=== PATIENT | female | born 1955 | race Caucasian/White ===

== ENCOUNTER 2020-06-04 06:40 | Outpatient (REF) | payer OTHER, SELFPAY ==
[2020-06-04 08:52] LABS: Thyroid Stimulating Hormone 0.62 uIU/mL (0.32-4.0)
== END 2020-06-04 06:41 | disposition home or self-care (01) ==
LOC: HO.LAB 06:40
PROVIDERS: Visit Provider Internal Medicine
DX: E03.9 Hypothyroidism, unspecified (principal)
CPT/HCPCS: 84443

== ENCOUNTER 2020-09-14 15:19 | Outpatient (REF) | payer OTHER, SELFPAY ==
--- NOTE | ~2020-09-14 | MM_ITS ---
EXAMINATION: MM SCREENING DIGITAL BREAST TOMOSYNTHESIS, BILATERAL CLINICAL INFORMATION: Screening. Asymptomatic. The lifetime risk of breast cancer based on the Tyrer-Cuzick Model is 7%. COMPARISON: Mammography: 09/09/2019, 07/25/2018, 06/12/2017 TECHNIQUE: Digital breast tomosynthesis is performed in both the craniocaudal and mediolateral oblique views along with computer-aided detection (CAD). Synthesized 2D images are generated from the tomosynthesis. Additional exaggerated left CC and right MLO views are provided. FINDINGS: The breasts are almost entirely fatty (ACR BI-RADS breast composition Category a). There are no significant masses, abnormal calcifications, or other abnormalities. Background stromal and fibroglandular densities are stable. Skin contours are smooth. MM/MM tomosynthesis screening BI IMPRESSION: No mammographic evidence of malignancy. ASSESSMENT: BI-RADS 1: Negative RECOMMENDATION: Routine annual mammography screening. This patient's information was entered into a reminder system with a target due date for their next mammogram.
== END 2020-09-14 15:20 | disposition home or self-care (01) ==
LOC: HO.MAMMO 15:19
PROVIDERS: Visit Provider Internal Medicine
DX: Z12.31 Encounter for screening mammogram for malignant neoplasm of breast (principal)
CPT/HCPCS: 77063; 77067

== ENCOUNTER 2020-11-12 13:00 | Outpatient (RCR) | payer OTHER, SELFPAY | END 2020-11-19 09:00 | disposition home or self-care (01) | LOC: HO.PT 13:00 | PROVIDERS: PCP Internal Medicine; Visit Provider Internal Medicine | DX: R42 Dizziness and giddiness (principal) | CPT/HCPCS: 95992; 97112; 97162 ==

== ENCOUNTER 2020-11-15 06:04 | Outpatient (REF) | payer OTHER, SELFPAY ==
[2020-11-15 07:04] LABS: Alanine Aminotransferase 26 U/L (0-31); Albumin Level 4.5 g/dL (3.5-5.0); Alkaline Phosphatase 80 U/L (39-117); Anion Gap 15 (12-20); Aspartate Amino Transferase 19 U/L (5-31); Bilirubin Total 0.6 mg/dL (0.0-1.0); Blood Urea Nitrogen 21 mg/dL (9-16); Calcium 9.6 mg/dL (8.4-10.2); Carbon Dioxide 28 mmol/L (22-29); Chloride 105 mmol/L (96-108); Cholesterol 237 mg/dL; Estimated Glomerular Filt Rate > 60; Glucose Random 116 mg/dL (60-115); HDL Cholesterol 86 mg/dL; LDL Cholesterol Calculated 137 mg/dl; Potassium 4.7 mmol/L (3.3-5.1); Sodium 143 mmol/L (135-145); Total Protein 7.1 g/dL (6.5-8.0); Triglycerides 74 mg/dL
[2020-11-15 07:06] LABS: Estimated Average Glucose 105 mg/dL; Hemoglobin A1c % 5.3 %
[2020-11-15 07:26] LABS: Free T4 (Free Thyroxine) 1.12 ng/dL (0.71-1.85); Thyroid Stimulating Hormone 0.81 uIU/mL (0.32-4.0); Vitamin D 25-OH Total 31.3 ng/mL (>30)
[2020-11-15 08:46] LABS: Glucose Urine UA NEG (NEG); Leukocyte Esterase Urine NEG (NEG); Nitrite Urine NEG (NEG); PH 5.5 (5.0-8.0); Specific Gravity - Urine >= 1.030 (1.005-1.025); Urine Blood 1+ (NEG); Urine Ketones NEG (NEG); Urine Protein NEG (NEG-TRACE)
[2020-11-15 08:47] LABS: Appearance Urine CLEAR; Color Urine YELLOW
[2020-11-15 08:59] LABS: Bacteria Urine TRACE /LPF; RBC Urine 0-2 /HPF (0); Squamous Epithelial Cell Urine TRACE /LPF; WBC Urine 0-2 /HPF (0-4)
== END 2020-11-15 06:05 | disposition home or self-care (01) ==
LOC: HO.LAB 06:04
PROVIDERS: PCP Internal Medicine; Visit Provider Internal Medicine
DX: I10 Essential (primary) hypertension (principal); K21.9 Gastro-esophageal reflux disease without esophagitis; E78.00 Pure hypercholesterolemia, unspecified; E03.9 Hypothyroidism, unspecified; R73.01 Impaired fasting glucose; E55.9 Vitamin D deficiency, unspecified
CPT/HCPCS: 36415; 80053; 80061; 81001; 82306; 83036; 84439; 84443

== ENCOUNTER 2021-03-08 15:56 | Outpatient (REF) | payer OTHER, SELFPAY ==
--- NOTE | 2021-03-09 09:00 | MHC.AU.P13 ---
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 Changed slim tube (last note says #1 however there was #2 on hearing aid) so replaced #2 slim tube and large power dome. Patient quoted $330.00 to send to [employer] for repair. 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 Signature: Provider:
== END 2021-03-08 15:57 | disposition home or self-care (01) ==
LOC: HO.HAP 15:56
PROVIDERS: Visit Provider Internal Medicine
DX: Z13.89 Encounter for screening for other disorder (principal)

== ENCOUNTER 2021-10-04 15:28 | Outpatient (REF) | payer OTHER, SELFPAY ==
--- NOTE | ~2021-10-04 | MM_ITS ---
EXAMINATION: MM SCREENING DIGITAL BREAST TOMOSYNTHESIS, BILATERAL CLINICAL INFORMATION: Screening. Asymptomatic. The lifetime risk of breast cancer based on the Tyrer-Cuzick Model is 6%. COMPARISON: Mammography: 09/14/2020, 09/09/2019, 07/25/2018 TECHNIQUE: Digital breast tomosynthesis is performed in both the craniocaudal and mediolateral oblique views along with computer-aided detection (CAD). Synthesized 2D images are generated from the tomosynthesis. Additional bilateral CC and additional bilateral MLO views are obtained. FINDINGS: The breasts are almost entirely fatty (ACR BI-RADS breast composition Category a). There are no significant masses, abnormal calcifications, or other abnormalities. Background stromal and fibroglandular densities are similar to prior studies. There is no developing density or architectural abnormality. No significant changes. MM/MM tomosynthesis screening BI IMPRESSION: No mammographic evidence of malignancy. ASSESSMENT: BI-RADS 1: Negative RECOMMENDATION: Routine annual mammography screening. This patient's information was entered into a reminder system with a target due date for their next mammogram.
== END 2021-10-04 15:29 | disposition home or self-care (01) ==
LOC: HO.MAMMO 15:28
PROVIDERS: PCP Internal Medicine; Visit Provider Internal Medicine
DX: Z12.31 Encounter for screening mammogram for malignant neoplasm of breast (principal)
CPT/HCPCS: 77063; 77067

== ENCOUNTER 2021-10-27 15:05 | Outpatient (REF) | payer OTHER, SELFPAY ==
--- NOTE | ~2021-10-27 | MM_ITS ---
EXAMINATION: BONE DENSITOMETRY CLINICAL INDICATION: Postmenopausal. COMPARISON: Previous BD dated 06/12/2017 and baseline BD dated 05/24/2010. TECHNIQUE: Using a [employer] DXA System (software version: 13.1) manufactured by [employer], dual-energy x-ray absorptiometry was performed of the lumbar spine and left hip. The images are of good technical quality. Summary results are attached. FINDINGS: AP SPINE L1-L4: Current: BMD 1.079 g/cm2, Z-score -0.5, T-score -0.8, normal, 3.6% decrease from previous, 5.2% decrease from baseline (<5% change is not significant). Prior: BMD 1.119 g/cm2. Baseline: BMD 1.138 g/cm2. LEFT FEMUR, NECK: Current: BMD 0.864 g/cm2, Z-score -0.6, T-score -1.3, osteopenia. Prior: BMD 1.038 g/cm2. Baseline: BMD 1.144 g/cm2. LEFT FEMUR, TOTAL: Current: BMD 0.942 g/cm2, Z-score -0.2, T-score -0.5, normal, 14.4% decrease from previous, 22.8% decrease from baseline (<5% change is not significant). Prior: BMD 1.101 g/cm2. Baseline: BMD 1.220 g/cm2. IDENTIFIED RISK FACTORS: Menopause, hyperthyroid, secondary osteoporosis. HISTORY OF FRACTURE: None listed. MEDICATIONS: Calcium, vitamin D. MM/XR DEXA axial skeleton IMPRESSION: 1. DIAGNOSIS: Osteopenia based on the lowest T-score value of -1.3 in the femoral neck applying World Health Organization criteria. 2. 10-YEAR FRACTURE RISK PREDICTION, FRAX: Major osteoporotic fracture (clinical spine, forearm, hip or shoulder) 7.5%. Hip fracture 0.6%. 3. Treatment Recommendations: NOF guidelines recommend consideration for treatment in postmenopausal women and men age 50 and older presenting with the following: -A hip or vertebral (clinical or morphometric) fracture. -T-score less than or equal to -2.5 at the femoral neck or spine after appropriate evaluation to exclude secondary causes. -Low bone mass at the hip or spine and a 10-year fracture probability by FRAX of greater than or equal to 3% for hip fracture or greater than or equal to 20% for major osteoporotic fracture based on the [place] adapted WHO algorithm. 4. Other Recommendations: All treatment decisions require clinical judgment and consideration of individual patient factors, including patient preferences, comorbidities, previous drug use, risk factors not captured in the FRAX model (e.g. frailty, falls, vitamin D deficiency, increased bone turnover, interval significant decline in bone density) and possible under or overestimation of fracture risk by FRAX. Additional medical evaluation for secondary cause of low bone mineral density may be appropriate. FUTURE SCAN RECOMMENDATION: People with diagnosed cases of osteoporosis or at high risk for fracture should have regular bone mineral density tests. For patients eligible for Medicare, routine testing is allowed once every 2 years. The testing frequency can be increased to one year for patients who have rapidly progressing disease, those who are receiving or discontinuing medical therapy to restore bone mass, or have additional risk factors.
== END 2021-10-27 15:06 | disposition home or self-care (01) ==
LOC: HO.MAMMO 15:05
PROVIDERS: Visit Provider Internal Medicine
DX: Z13.820 Encounter for screening for osteoporosis (principal); Z78.0 Asymptomatic menopausal state; M85.80 Other specified disorders of bone density and structure, unspecified site
CPT/HCPCS: 77080

== ENCOUNTER 2022-01-12 06:11 | Outpatient (REF) | payer OTHER, SELFPAY ==
[2022-01-12 06:17] LABS: MANUAL DIFF FLAG NO
[2022-01-12 07:13] LABS: Basophils Percent Auto 0.4 % (0-2); Eosinophils Absolute Auto 0.1 X10*3/uL (0.0-0.4); Eosinophils Percent Auto 1.6 % (0-4); Hematocrit 47.2 % (37.0-47.0); Hemoglobin 15.3 g/dl (12.0-16.0); Imm Gran Abs Auto 0.02 X10*3/uL (0.00-0.03); Imm Gran Pct Auto 0.3 % (0.0-0.4); Lymphocytes Absolute Auto 1.9 X10*3/uL (1.2-4.9); Lymphocytes Percent Auto 28.4 % (20-40); Mean Corpuscular HGB Conc 32.4 g/dl (31.0-35.0); Mean Corpuscular Hemoglobin 30.5 pg (27.0-33.0); Mean Corpuscular Volume 94.2 fL (80.0-98.0); Mean Platelet Volume 10.3 fL (9.4-12.3); Monocytes Absolute Auto 0.6 X10*3/uL (0.1-1.2); Monocytes Percent Auto 8.2 % (2-11); Neutrophils Absolute Auto 4.1 x10*3/uL (2.0-8.3); Neutrophils Percent Auto 61.1 % (45-73); Platelet Count 372 X10*3/uL (160-400); Red Blood Count 5.01 X10*6/uL (4.20-5.50); Red Cell Distribution Width 13.1 % (11.0-16.0); White Blood Count 6.7 X10*3/uL (4.8-10.8)
[2022-01-12 07:47] LABS: Alanine Aminotransferase 36 U/L (0-31); Albumin Level 4.5 g/dL (3.5-5.0); Alkaline Phosphatase 81 U/L (39-117); Anion Gap 14 (12-20); Aspartate Amino Transferase 27 U/L (5-31); Bilirubin Total 0.5 mg/dL (0.0-1.0); Blood Urea Nitrogen 16 mg/dL (9-16); Calcium 9.5 mg/dL (8.4-10.2); Carbon Dioxide 28 mmol/L (22-29); Chloride 104 mmol/L (96-108); Cholesterol 238 mg/dL; Estimated Glomerular Filt Rate > 60; Glucose Random 117 mg/dL (60-115); HDL Cholesterol 86 mg/dL; LDL Cholesterol Calculated 136 mg/dl; Sodium 141 mmol/L (135-145); Total Protein 7.2 g/dL (6.5-8.0); Triglycerides 83 mg/dL
[2022-01-12 08:03] LABS: Free T4 (Free Thyroxine) 1.29 ng/dL (0.71-1.85); Thyroid Stimulating Hormone 0.36 uIU/mL (0.32-4.0)
[2022-01-12 08:06] LABS: Appearance Urine HAZY; Color Urine YELLOW; Glucose Urine UA NEG (NEG); Leukocyte Esterase Urine 3+ (NEG); Nitrite Urine NEG (NEG); Specific Gravity - Urine 1.025 (1.005-1.025); Urine Blood 1+ (NEG); Urine Ketones NEG (NEG); Urine Protein NEG (NEG-TRACE)
[2022-01-12 08:31] LABS: Bacteria Urine 2+ /LPF; Squamous Epithelial Cell Urine 3+ /LPF
== END 2022-01-12 06:12 | disposition home or self-care (01) ==
LOC: HO.LAB 06:11
PROVIDERS: PCP Internal Medicine; Visit Provider Internal Medicine
DX: R73.01 Impaired fasting glucose (principal); I10 Essential (primary) hypertension; E78.00 Pure hypercholesterolemia, unspecified; E03.9 Hypothyroidism, unspecified
CPT/HCPCS: 36415; 80053; 80061; 81001; 81003; 84439; 84443; 85025

== ENCOUNTER 2022-02-13 13:45 | Outpatient (REF) | payer OTHER, SELFPAY ==
[2022-02-13 13:51] VITALS: BMI 32.9
[2022-02-13 13:52] VITALS: BP 165/79; PULSE 68; RESP 16; TEMP 36.1; O2SAT 96
[2022-02-13 15:45] VITALS: BP 142/77; PULSE 73; RESP 16; O2SAT 95
== END 2022-02-13 13:46 | disposition home or self-care (01) ==
LOC: HO.MS 13:45
PROVIDERS: PCP Internal Medicine; Visit Provider Ophthalmology
PROC: (CPT 67800; principal; 2022-02-13 13:40)
DX: H00.14 Chalazion left upper eyelid (principal); H35.363 Drusen (degenerative) of macula, bilateral; Z82.1 Family history of blindness and visual loss; I10 Essential (primary) hypertension; E07.9 Disorder of thyroid, unspecified; Z79.899 Other long term (current) drug therapy; Z88.2 Allergy status to sulfonamides; Z88.8 Allergy status to other drugs, medicaments and biological substances; Z87.891 Personal history of nicotine dependence
CPT/HCPCS: 67800

== ENCOUNTER → 2022-02-23 15:24 | Outpatient (BNVA) | payer OTHER, SELFPAY | PROVIDERS: PCP Internal Medicine; Referring Provider Internal Medicine; Visit Provider Internal Medicine Cardiovascular Disease | DX: I49.3 Ventricular premature depolarization (principal); I10 Essential (primary) hypertension | CPT/HCPCS: 93005 ==

== ENCOUNTER 2022-04-21 06:13 | Outpatient (REF) | payer OTHER, SELFPAY ==
[2022-04-21 07:56] LABS: Estimated Average Glucose 114 mg/dL; Hemoglobin A1c % 5.6 %
[2022-04-21 08:14] LABS: Anion Gap 16 (12-20); Blood Urea Nitrogen 18 mg/dL (9-16); Calcium 9.4 mg/dL (8.4-10.2); Carbon Dioxide 28 mmol/L (22-29); Chloride 102 mmol/L (96-108); Estimated Glomerular Filt Rate > 60; Glucose Random 119 mg/dL (60-115); Potassium 4.6 mmol/L (3.3-5.1); Sodium 141 mmol/L (135-145)
[2022-04-21 08:20] LABS: TSH reflex Free T4 6.26 uIU/mL (0.32-4.0)
[2022-04-21 09:17] LABS: Free T4 (Free Thyroxine) 1.07 ng/dL (0.71-1.85)
== END 2022-04-21 06:14 | disposition home or self-care (01) ==
LOC: HO.LAB 06:13
PROVIDERS: PCP Internal Medicine; Visit Provider Internal Medicine
DX: I10 Essential (primary) hypertension (principal); E07.89 Other specified disorders of thyroid; R73.01 Impaired fasting glucose
CPT/HCPCS: 36415; 80048; 83036; 84439; 84443

== ENCOUNTER 2022-06-28 15:39 | Outpatient (REF) | payer OTHER, SELFPAY ==
[2022-06-28 15:59] LABS: MANUAL DIFF FLAG NO
[2022-06-28 16:20] LABS: Basophils Percent Auto 0.5 % (0-2); Eosinophils Absolute Auto 0.1 X10*3/uL (0.0-0.4); Eosinophils Percent Auto 1.4 % (0-4); Hematocrit 45.2 % (37.0-47.0); Hemoglobin 14.7 g/dl (12.0-16.0); Imm Gran Abs Auto 0.03 X10*3/uL (0.00-0.03); Imm Gran Pct Auto 0.4 % (0.0-0.4); Lymphocytes Absolute Auto 2.4 X10*3/uL (1.2-4.9); Lymphocytes Percent Auto 30.3 % (20-40); Mean Corpuscular HGB Conc 32.5 g/dl (31.0-35.0); Mean Corpuscular Hemoglobin 30.4 pg (27.0-33.0); Mean Corpuscular Volume 93.4 fL (80.0-98.0); Mean Platelet Volume 10.1 fL (9.4-12.3); Monocytes Absolute Auto 0.8 X10*3/uL (0.1-1.2); Monocytes Percent Auto 10.4 % (2-11); Neutrophils Absolute Auto 4.5 x10*3/uL (2.0-8.3); Platelet Count 333 X10*3/uL (160-400); Red Blood Count 4.84 X10*6/uL (4.20-5.50); Red Cell Distribution Width 12.8 % (11.0-16.0); White Blood Count 7.8 X10*3/uL (4.8-10.8)
[2022-06-28 17:07] LABS: Alanine Aminotransferase 30 U/L (0-31); Albumin Level 4.4 g/dL (3.5-5.0); Alkaline Phosphatase 76 U/L (39-117); Anion Gap 11 (12-20); Aspartate Amino Transferase 23 U/L (5-31); Bilirubin Total 0.5 mg/dL (0.0-1.0); Blood Urea Nitrogen 18 mg/dL (9-16); Calcium 9.4 mg/dL (8.4-10.2); Carbon Dioxide 30 mmol/L (22-29); Chloride 104 mmol/L (96-108); Estimated Glomerular Filt Rate > 60; Ferritin 191 ng/mL (10-250); Free T4 (Free Thyroxine) 1.11 ng/dL (0.71-1.85); Glucose Random 103 mg/dL (60-115); Iron 72 mcg/dL (30-160); Percent Iron Saturation 26 % (15-50); Potassium 4.3 mmol/L (3.3-5.1); Sodium 141 mmol/L (135-145); Thyroid Stimulating Hormone 1.02 uIU/mL (0.32-4.0); Total Iron Binding Capacity 277 mcg/dL (228-428); Total Protein 6.9 g/dL (6.5-8.0); Unsaturated Iron Binding 205 ug/dL
== END 2022-06-28 15:40 | disposition home or self-care (01) ==
LOC: HO.LAB 15:39
PROVIDERS: PCP Internal Medicine; Visit Provider Internal Medicine
DX: E03.9 Hypothyroidism, unspecified (principal); I10 Essential (primary) hypertension; R94.5 Abnormal results of liver function studies
CPT/HCPCS: 36415; 80053; 82728; 83540; 84439; 84443; 85025

== ENCOUNTER 2022-07-18 07:47 | Outpatient (REF) | payer OTHER, SELFPAY ==
--- NOTE | ~2022-07-18 | CT_ITS ---
EXAMINATION: CT ABDOMEN AND PELVIS WITH CONTRAST CLINICAL INFORMATION: Epigastric pain. COMPARISON: CT abdomen and pelvis with contrast 01/22/2013. TECHNIQUE: Multidetector volumetric images were obtained from the superior aspect of the liver through the pubic symphysis following administration 85 mL of Omnipaque 350 intravenous contrast. Sagittal and coronal reformatted images were obtained on the technologist's workstation. Oral contrast: No. This CT examination was performed using dose optimization techniques as appropriate, variously including the following: *Automated exposure control *Adjustment of mA and/or kV according to patient size (this includes techniques or standardized protocols for targeted exams where dose is matched to indication/reason for exam; i.e. extremities or head) *Use of iterative reconstruction technique DLP: 747 mGy-cm FINDINGS: LUNG BASES: The visualized lung bases are unremarkable. LIVER, GALLBLADDER, AND BILIARY TREE: The liver is normal in size, shape, and attenuation. There is an 8 mm round hypodensity left hepatic lobe, probable cyst. Best visualized on axial image 17/3. It is unchanged since 2013 exam. No additional lesions seen. There is no intrahepatic ductal dilatation. The gallbladder is unremarkable with no evidence of radiopaque gallstones, gallbladder wall thickening, or obvious pericholecystic inflammatory changes. PANCREAS: Pancreas is homogeneous in density and normal size with a known 7 mm hypodensity in the tail of the pancreas likely small lipoma, stable. SPLEEN: Unremarkable. ADRENAL GLANDS: Unremarkable. KIDNEYS AND URETERS: The kidneys are normal in size, shape, and attenuation. No hydronephrosis, hydroureter, or calculi seen. No perinephric stranding. There is a 7 mm hypodensity in the right kidney upper pole, likely cyst. Previously it measured 9 mm in 2013. BLADDER: Unremarkable. GASTROINTESTINAL TRACT: There is moderate scattered stool, diverticuli and gas seen in the colon without any distention. Oral contrast opacified small bowel loops are normal caliber. ABDOMINAL WALL: There is a small umbilical hernia containing intraperitoneal fat. LYMPH NODES: Normal. VASCULAR: Unremarkable. PELVIC VISCERA: The right inguinal canal is prominent with peritoneal fat. No free fluid or mass seen. The uterus is anteverted. OSSEOUS STRUCTURES: There are degenerative disc changes L5/S1 disc level with vacuum disc phenomena. No aggressive lytic or sclerotic process seen. CT/CT abdomen pelvis w IV con IMPRESSION: No acute intra-abdominal process seen. Stable left hepatic lobe cyst. Colonic diverticulosis without diverticulitis. Fleischner guidelines were followed.
[2022-07-18] MEDS: iohexoL 350 MG/ML 100 ML INFUS..BTL IV (10:37)
[2022-07-18] MEDS: Barium Sulfate Oral (Vanilla) 450 ML ORAL.SUSP 900 ML PO (10:38)
== END 2022-07-18 07:48 | disposition home or self-care (01) ==
LOC: HO.CT 07:47
PROVIDERS: PCP Internal Medicine; Visit Provider Internal Medicine
DX: R10.13 Epigastric pain (principal)
CPT/HCPCS: 74177; Q9967

== ENCOUNTER 2022-10-27 09:24 | Day surgery (SDC) | payer OTHER, SELFPAY ==
--- NOTE | 2022-10-27 08:52 | HO.ANESPROP2 ---
[facility] Active Problems Active Problems: All Active Problems (Updated 10/26/22 @ 12:33 by Britni Zamorano RN) HTN (hypertension) (Acute) PVCs (premature ventricular contractions) (Acute) Past Medical History Medical History Diverticulitis GERD (gastroesophageal reflux disease) HTN (hypertension) PVCs (premature ventricular contractions) Surgical History Surgical History H/O esophagogastroduodenoscopy H/O mastoidectomy History of bladder surgery History of ear surgery Hx of tonsillectomy History of Problems with Anesthesia: No Social History Social History Patient Tobacco Use Status: Never used Tobacco Are you DNR?: No Advance Directives: No Advance Directives Information Provided: Yes Nutrition Risks: No Nutritional Risk Meds Allergies Allergy/AdvReac Type Severity Reaction Status Date / Time levofloxacin [From Levaquin] Allergy Severe RED Verified 10/27/22 09:34 SKIN/BURNING SENSATION, rash metoprolol [METOPROLOL] Allergy Severe severe Verified 10/27/22 09:34 muscle weakness pineapple [PINEAPPLE] Allergy Severe TONGUE Verified 10/27/22 09:34 SWELLING propranolol [PROPRANOLOL] Allergy Intermediate DYSPNEA/DEPRESSION, Verified 10/27/22 09:34 depression Sulfa (Sulfonamide Allergy Intermediate RASH Verified 10/27/22 09:34 Antibiotics) lisinopril Allergy Unknown cough Verified 10/27/22 09:34 venom-wasp Allergy Unknown severe Verified 10/27/22 09:34 local reaction Flexeril Allergy Unknown nausea Uncoded 10/27/22 09:34 Home Medications Medication Instructions Recorded Confirmed Last Taken Type cholecalciferol (vitamin D3) 25 25 mcg PO DAILY 02/23/22 10/27/22 Unknown History mcg (1,000 unit) capsule diltiazem HCl 180 mg 180 mg PO DAILY 02/23/22 10/27/22 Unknown History capsule,extended release 24 hr levothyroxine 100 mcg tablet 100 mcg PO DAILY 02/23/22 10/27/22 Unknown History losartan 100 mg tablet 100 mg PO DAILY 02/23/22 10/27/22 Unknown History multivitamin (Multiple Vitamins 1 tab PO DAILY 02/23/22 10/27/22 Unknown History tablet) omeprazole magnesium 20 mg 20 mg PO PRN Heartburn 10/27/22 Unknown History tablet,delayed release (Prilosec OTC) Exam Exam Date and Time: October 27, 2022 [id number] Mallampati Class: III (small mouth) TM Dist: >3cm Neck ROM: Full Loose/Missing/Broken Teeth: No Heart: RRR Lungs: CTA Assessment and Plan Final Anesthetic Review History of Problems with Anesthesia: No NPO: Yes ASA Class: II Final Preanesthetic Review: Meds/Allgs Chart Reviewed, Consent Obtained/Reviewed and Anes Risks/Benef Reviewed Patient Risk: Low Procedure Risk: Intermediate Anesthetic Plan Anesthetic Plan: MAC: Disposition: Standard PACU
[2022-10-27 09:31] VITALS: BMI 34.0
[2022-10-27] MEDS: Lactated Ringers 1,000 ML 50 ML IVCONT (09:38)
[2022-10-27 09:59] VITALS: BP 158/86; PULSE 93; RESP 18; TEMP 36.7; O2SAT 95
--- NOTE | 2022-10-27 11:08 | MHC.SHP ---
Pre-Procedural Eval Section A Date of Service: 10/27/22 The patient is an INPATIENT: No Changes since office visit: No Cold of Flu in the past 2 weeks, No New Medical Problems, No Changes in Medication and No Patient answered all questions The History & Physical has been completed within 30 days and I have reviewed it.: Yes Section B Chief Complaint: Other dysphagia,GERD,Screening Allergies: Allergies Allergy/AdvReac Type Severity Reaction Status Date / Time levofloxacin [From Levaquin] Allergy Severe RED Verified 10/27/22 09:34 SKIN/BURNING SENSATION, rash metoprolol [METOPROLOL] Allergy Severe severe Verified 10/27/22 09:34 muscle weakness pineapple [PINEAPPLE] Allergy Severe TONGUE Verified 10/27/22 09:34 SWELLING propranolol [PROPRANOLOL] Allergy Intermediate DYSPNEA/DEPRESSION, Verified 10/27/22 09:34 depression Sulfa (Sulfonamide Allergy Intermediate RASH Verified 10/27/22 09:34 Antibiotics) lisinopril Allergy Unknown cough Verified 10/27/22 09:34 venom-wasp Allergy Unknown severe Verified 10/27/22 09:34 local reaction Flexeril Allergy Unknown nausea Uncoded 10/27/22 09:34 Plan I have reviewed the history and physical and performed a pertinent physical examination on my patient. No changes have occurred unless specified. Time Spent With Patient Time: Total time managing care of this patient today ____ minutes.
[2022-10-27 11:55] VITALS: BP 143/63; PULSE 89; RESP 20; TEMP 36.4; O2SAT 95
--- NOTE | 2022-10-27 11:57 | P.BOP_ITS ---
Brief Operative Note Date of Service: 10/27/22 Pre-op diagnosis: dysphagia gerd screening Post-op diagnosis: same Procedure: egd colonoscopy Surgeon: Steve Trinh Anesthesia: MAC Was an Infantry Senior Sergeant used for this Procedure?: No Estimated blood loss (mL): 2 Pathology: other Condition: stable Disposition: PACU
[2022-10-27 12:10] VITALS: BP 130/67; PULSE 88; RESP 18; O2SAT 95
[2022-10-27 12:17] VITALS: BP 151/78; PULSE 80; RESP 17; TEMP 36.4; O2SAT 96
--- NOTE | 2022-10-27 13:02 | OP_ITS ---
DATE OF SERVICE: 10/27/2022 SURGEON: Steve Trinh MD INDICATIONS: 1. Gastroesophageal reflux disease. 2. Dysphagia. 3. Colon cancer screening. PREOPERATIVE DIAGNOSIS: POSTOPERATIVE DIAGNOSIS: PROCEDURE PERFORMED: 1. Upper endoscopy with biopsy. 2. Colonoscopy to the terminal ilium. ESTIMATED BLOOD LOSS: COMPLICATIONS: ANESTHESIA: Monitored anesthesia care. ASSISTANTS: SPECIMENS: DESCRIPTION OF PROCEDURE: A history and physical was performed. The risks and benefits of the procedure were explained to the patient. Informed consent was obtained. The patient was placed in the left lateral decubitus position. The Olympus video gastroscope was introduced into the esophagus, stomach, and duodenum. Examination was performed. The scope was removed. She was repositioned for colonoscopy. Digital rectal exam was performed and was found to be normal. The Olympus pediatric video colonoscope was introduced in the rectum and advanced to the cecum without difficulty. The cecum was identified by transillumination, palpation, and identification of the ileocecal valve. Examination was performed. The scope was removed. She tolerated both procedures well and was returned to the recovery area in stable condition. FINDINGS: Upper endoscopy: 1. Esophagus: The esophagus was normal. There was a normal EG junction. Biopsies were obtained at 30 cm at the EG junction. There was no esophagitis. 2. Stomach: The stomach was normal. Antral biopsies were obtained. 3. Duodenum: The bulb and 2nd portion were normal. Colonoscopy: The terminal was examined and appeared normal. The visualized colonic mucosa was normal. There was some liquid stool in the cecum, which was washed and suctioned. No polyps were identified. Retroflexed examination was normal. There was moderate sigmoid diverticulosis without evidence of diverticulitis and no scattered diverticula throughout the remainder of the colon. IMPRESSION: 1. Gastroesophageal reflux disease. 2. Normal colonoscopy, diverticular. RECOMMENDATION: 1. Follow up the biopsy results. 2. Repeat colonoscopy is recommended in 10 years for average risk individuals. MD VIC Leong/ROBERT / [id number]
== END 2022-10-27 12:30 | disposition home or self-care (01) ==
PROVIDERS: PCP Internal Medicine; Visit Provider Internal Medicine Gastroenterology
PROC: (CPT 45378; principal; 2022-10-27 10:40)
DX: Z12.11 Encounter for screening for malignant neoplasm of colon (principal); Z86.010 Personal history of colon polyps; K57.30 Diverticulosis of large intestine without perforation or abscess without bleeding; R13.19 Other dysphagia; K21.9 Gastro-esophageal reflux disease without esophagitis; I10 Essential (primary) hypertension; R00.2 Palpitations; Z79.899 Other long term (current) drug therapy; Z88.1 Allergy status to other antibiotic agents; Z88.2 Allergy status to sulfonamides; Z88.8 Allergy status to other drugs, medicaments and biological substances; Z87.891 Personal history of nicotine dependence
CPT/HCPCS: 45378; 43239; 88305; 88342; J2250

== ENCOUNTER 2022-11-14 15:24 | Outpatient (REF) | payer OTHER, SELFPAY ==
--- NOTE | ~2022-11-14 | MM_ITS ---
EXAMINATION: MM SCREENING DIGITAL BREAST TOMOSYNTHESIS, BILATERAL CLINICAL INFORMATION: Screening. Asymptomatic. The lifetime risk of breast cancer based on the Tyrer-Cuzick Model is 7%. COMPARISON: Mammography: October 04, 2021 and studies dating back to March 03, 2013 TECHNIQUE: Digital breast tomosynthesis is performed in both the craniocaudal and mediolateral oblique views along with computer-aided detection (CAD). Synthesized 2D images are generated from the tomosynthesis. FINDINGS: The breasts are almost entirely fatty (ACR BI-RADS breast composition Category a). There are no significant masses, abnormal calcifications, or other abnormalities. Density about the deep lateral aspect of the left breast on craniocaudal view is seen to have been present on study of June 12, 2017. MM/MM tomosynthesis screening BI IMPRESSION: No significant changes from prior exam. ASSESSMENT: BI-RADS 1: Negative RECOMMENDATION: Routine annual mammography screening. This patient's information was entered into a reminder system with a target due date for their next mammogram.
== END 2022-11-14 15:25 | disposition home or self-care (01) ==
LOC: HO.MAMMO 15:24
PROVIDERS: PCP Internal Medicine; Visit Provider Internal Medicine
DX: Z12.31 Encounter for screening mammogram for malignant neoplasm of breast (principal)
CPT/HCPCS: 77063; 77067

== ENCOUNTER 2023-04-04 08:15 | Outpatient (REF) | payer OTHER, SELFPAY ==
[2023-04-04 08:32] LABS: MANUAL DIFF FLAG NO
[2023-04-04 09:26] LABS: Basophils Percent Auto 0.5 % (0-2); Eosinophils Absolute Auto 0.1 X10*3/uL (0.0-0.4); Eosinophils Percent Auto 1.4 % (0-4); Hematocrit 47.3 % (37.0-47.0); Hemoglobin 15.3 g/dl (12.0-16.0); Imm Gran Abs Auto 0.02 X10*3/uL (0.00-0.03); Imm Gran Pct Auto 0.3 % (0.0-0.4); Lymphocytes Percent Auto 30.7 % (20-40); Mean Corpuscular HGB Conc 32.3 g/dl (31.0-35.0); Mean Corpuscular Hemoglobin 30.6 pg (27.0-33.0); Mean Corpuscular Volume 94.6 fL (80.0-98.0); Mean Platelet Volume 10.6 fL (9.4-12.3); Monocytes Absolute Auto 0.6 X10*3/uL (0.1-1.2); Monocytes Percent Auto 8.5 % (2-11); Neutrophils Absolute Auto 3.8 x10*3/uL (2.0-8.3); Neutrophils Percent Auto 58.6 % (45-73); Platelet Count 343 X10*3/uL (160-400); Red Cell Distribution Width 12.9 % (11.0-16.0); White Blood Count 6.5 X10*3/uL (4.8-10.8)
[2023-04-04 09:32] LABS: Estimated Average Glucose 103 mg/dL; Hemoglobin A1c % 5.2 % (<6.0)
[2023-04-04 09:40] LABS: Appearance Urine Clear; Color Urine Dark Yellow; Glucose Urine UA Negative (Negative); Leukocyte Esterase Urine Moderate (2+) (Negative); Nitrite Urine Negative (Negative); UMIC TRIGGER UACC YES; Urine Blood Trace (Negative); Urine Ketones Negative (Negative); Urine Protein Negative (Neg-Trace)
[2023-04-04 09:45] LABS: Bacteria Urine Trace (None Seen); Hyaline Casts Urine 0-2 /LPF (0-2); Squamous Epithelial Cell Urine >20 /HPF (0-2); UACC Culture Trigger YES
[2023-04-04 10:06] LABS: Alanine Aminotransferase 26 U/L (0-31); Albumin Level 4.4 g/dL (3.5-5.0); Alkaline Phosphatase 82 U/L (39-117); Anion Gap 12 (12-20); Aspartate Amino Transferase 21 U/L (5-31); Bilirubin Total 0.9 mg/dL (0.0-1.0); Blood Urea Nitrogen 17 mg/dL (9-16); Calcium 9.8 mg/dL (8.4-10.2); Carbon Dioxide 30 mmol/L (22-29); Chloride 103 mmol/L (96-108); Cholesterol 236 mg/dL (<200); Estimated Glomerular Filt Rate > 60; Glucose Random 113 mg/dL (60-115); HDL Cholesterol 93 mg/dL (>40); LDL Cholesterol Calculated 127 mg/dL (<100); Potassium 3.8 mmol/L (3.3-5.1); Sodium 141 mmol/L (135-145); Total Protein 7.3 g/dL (6.5-8.0); Triglycerides 83 mg/dL (<150)
[2023-04-04 10:25] LABS: Thyroid Stimulating Hormone 0.39 uIU/mL (0.32-4.0); Vitamin D 25-OH Total 38.4 ng/mL (>30)
== END 2023-04-04 08:16 | disposition home or self-care (01) ==
LOC: HO.LAB 08:15
PROVIDERS: PCP Internal Medicine; Visit Provider Internal Medicine
DX: I10 Essential (primary) hypertension (principal); R35.1 Nocturia; E55.9 Vitamin D deficiency, unspecified; R73.01 Impaired fasting glucose
CPT/HCPCS: 36415; 80053; 80061; 81001; 82306; 83036; 84439; 84443; 85025; 87086

== ENCOUNTER 2023-07-03 12:10 | Inpatient (IN) | payer MEDICARE, SELFPAY ==
--- NOTE | ~2023-07-03 | CT_ITS ---
EXAMINATION: CT HEAD WITHOUT CONTRAST CLINICAL INFORMATION: Dizziness, imbalance COMPARISON: None available. TECHNIQUE: Contiguous axial imaging was performed from the skull base to vertex without intravenous administration of contrast. This CT examination was performed using dose optimization techniques as appropriate, variously including the following: *Automated exposure control *Adjustment of mA and/or kV according to patient size (this includes techniques or standardized protocols for targeted exams where dose is matched to indication/reason for exam; i.e. extremities or head) *Use of iterative reconstruction technique DLP: 671 mGy-cm FINDINGS: The ventricles and sulci are normal in size and configuration. No acute hemorrhage, mass effect or shift is evident. Alejandre-white differentiation is maintained. In the posterior fossa, the brainstem, cerebellum and fourth ventricle image normally. The orbits and calvarium are intact. The paranasal sinuses and mastoid air cells are well pneumatized and clear. CT/CT head/brain wo IV con IMPRESSION: 1. Unremarkable noncontrast brain CT. No acute hemorrhage, mass effect or shift.
--- NOTE | ~2023-07-03 | CT_ITS ---
EXAMINATION: CT ANGIOGRAM HEAD CT ANGIOGRAM NECK CLINICAL INFORMATION: Reason for Exam dizziness COMPARISON: Same-day CT head TECHNIQUE: Initial noncontrast sheet rock finisher imaging of the head and neck was performed. Comparison is made with noncontrast head CT from earlier today. Test bolus sequences followed by intravenous administration 70 mL of Omnipaque 350. Helical imaging was performed in the axial plane from the aortic arch to the skull vertex. Delayed postcontrast imaging of the head was also performed. The data was processed at the seating and mobility technologist's workstation for generation of MIP sequences. Angled MIPs and volume rendered reformatted images were also generated at an offline 3D workstation. Stenoses are assessed in accordance with Jacinto et al. Quantification of Carotid Stenosis on CT Angiography. AJR 2006. 27(1):13-19. [address] CT examination was performed using dose optimization techniques as appropriate, variously including the following: *Automated exposure control *Adjustment of mA and/or kV according to patient size (this includes techniques or standardized protocols for targeted exams where dose is matched to indication/reason for exam; i.e. extremities or head) *Use of iterative reconstruction technique DLP: 1439 mGy-cm FINDINGS: CT HEAD: No abnormal intracranial enhancement. Right-sided mastoidectomy. Please see separately dictated CT scan head for additional intracranial findings. CTA HEAD: Significant intracranial venous contamination. Anterior circulation: Right internal carotid artery: Atherosclerosis without flow-limiting stenosis. Prominent tortuosity. Right middle cerebral artery: No hemodynamically significant stenosis. Right anterior cerebral artery: No hemodynamically significant stenosis. Left internal carotid artery: Atherosclerosis without flow-limiting stenosis. Left middle cerebral artery: No hemodynamically significant stenosis. Left anterior cerebral artery: Mild fusiform prominence of the left aspect of the anterior commuting artery. Posterior circulation: Right vertebral artery: No hemodynamically significant stenosis. Left vertebral artery: No hemodynamically significant stenosis. Basilar artery: No hemodynamically significant stenosis. Right posterior cerebral artery: No hemodynamically significant stenosis. Left posterior cerebral artery: No hemodynamically significant stenosis. No high flow vascular malformation or significant aneurysmal dilatation is visualized. The major dural venous sinuses are grossly within normal limits given arterial technique. CTA NECK: Aortic arch: Normal anatomy. Right common carotid artery: Proximal motion degradation. The visualized aspects are without flow-limiting stenosis. Right proximal internal carotid artery: No hemodynamically significant stenosis. Right mid/distal internal carotid artery: No hemodynamically significant stenosis. Left common carotid artery: No hemodynamically significant stenosis. Left proximal internal carotid artery: No hemodynamically significant stenosis. Left mid/distal internal carotid artery: No hemodynamically significant stenosis. Right vertebral artery: No hemodynamically significant stenosis. Left vertebral artery: No hemodynamically significant stenosis. CT NECK: Linear scarring in the right upper lobe. 3 mm perifissural nodule in the right upper lobe. Atrophic thyroid gland. Nonspecific prominence of the right lingual tonsil filling the right vallecula. Small intraparotid lymph nodes. The oral cavity is obscured secondary to streak artifact. Degenerative changes of the cervical spine. CT/CT angio head neck IMPRESSION: CTA NECK: No hemodynamically significant stenosis. Mild asymmetric prominence of the right lingual tonsil protruding into the right vallecula. Clinical correlation is recommended. CTA HEAD: No proximal vessel occlusion or high-grade stenosis.
--- NOTE | ~2023-07-03 | MR_ITS ---
EXAMINATION: MR BRAIN WITHOUT CONTRAST CLINICAL INFORMATION: Concern for posterior circulation stroke. Dizziness and imbalance. COMPARISON: CT from 07/03/2023. TECHNIQUE: Multiplanar, multisequence imaging of the brain was performed without contrast. FINDINGS: No diffusion abnormalities are identified to suggest an acute or subacute infarct. The ventricles are normal in size. No mass effect or midline shift is seen. No brain parenchymal signal abnormality is noted. No extra-axial fluid collections are seen. The brainstem and cerebellum are normal. The gradient refocused acquisition is normal. The craniovertebral junction, marrow signal, and midline structures are normal. The major intracranial flow voids at the level of the [place] are preserved. The dural venous sinus flow voids are maintained. There is trace fluid in the right mastoid air cells. The left mastoid air cells are well aerated. The paranasal sinuses are clear. MR/MR head/brain wo con IMPRESSION: No acute intracranial process. Normal MRI of the brain.
--- NOTE | 2023-07-03 12:11 | ECG_ITS ---
Test Reason : dizziness Blood Pressure : / mmHG Vent. Rate : 085 BPM Atrial Rate : 085 BPM P-R Int : 146 ms QRS Dur : 088 ms QT Int : 354 ms P-R-T Axes : 039 -05 015 degrees QTc Int : 421 ms Sinus rhythm with occasional Premature ventricular complexes Minimal voltage criteria for LVH, may be normal variant ( R in aVL ) Borderline ECG No previous ECGs available Referred By: Lillian Coronel Electronically Signed By:Lawrence Araya
--- NOTE | 2023-07-03 12:54 | ED.DIZZY ---
HPI - Dizziness General Chief Complaint: Dizziness Stated Complaint: dizzy Time Seen by Provider: 07/03/23 19:18 Source: patient Mode of arrival: ambulatory Limitations: no limitations History of Present Illness HPI Narrative: 68 yo female with PMH of HTN, PVCs, vertigo, R prior ear surgery and revisions multiple due to polyp issue as a child here with c/o traveling recently and feeling a pop in L ear - was up in [facility]. She then notes that Sunday morning woke up with progressively worsening dizzines and feeling like she cannot walk it has not gone away she also has nausea. She has a hard time walking, no vision loss, numbness or weakness. MD elicited complaint: dizziness and lightheadedness Pertinent past history: BPPV and inner ear problems Onset (ago): day(s) (started Sunday ) Timing: gradual onset and constant Severity: moderate Description: lightheadedness Context: other (has been constant) History of similar symptoms: Yes (different when she had vertigo last time it occurred when she laid flat) Exacerbating factors: movement/ambulation Relieving factors: nothing Associated symptoms: nausea Related Data Home Medications Medication Instructions Recorded Confirmed cholecalciferol (vitamin D3) 25 25 mcg PO DAILY 02/23/22 07/03/23 mcg (1,000 unit) capsule diltiazem HCl 180 mg 180 mg PO DAILY 02/23/22 07/03/23 capsule,extended release 24 hr levothyroxine 100 mcg tablet 150 mcg PO SUWE@0600 02/23/22 07/03/23 losartan 100 mg tablet 100 mg PO DAILY 02/23/22 07/03/23 multivitamin (Multiple Vitamins 1 tab PO DAILY 02/23/22 07/03/23 tablet) levothyroxine 100 mcg tablet 100 mcg PO MOTUTHFRSA@0600 07/03/23 07/03/23 magnesium 250 mg tablet 250 mg PO DAILY 07/03/23 07/03/23 Allergies Allergy/AdvReac Type Severity Reaction Status Date / Time levofloxacin [From Levaquin] Allergy Severe RED Verified 07/03/23 12:54 SKIN/BURNING SENSATION, rash metoprolol [METOPROLOL] Allergy Severe severe Verified 07/03/23 12:54 muscle weakness pineapple [PINEAPPLE] Allergy Severe TONGUE Verified 07/03/23 12:54 SWELLING propranolol [PROPRANOLOL] Allergy Intermediate DYSPNEA/DEPRESSION, Verified 1212/23 12:54 depression Sulfa (Sulfonamide Allergy Intermediate RASH Verified 07/03/23 12:54 Antibiotics) lisinopril Allergy Unknown cough Verified 07/03/23 12:54 venom-wasp Allergy Unknown severe Verified 07/03/23 12:54 local reaction Flexeril Allergy Unknown nausea Uncoded 07/03/23 12:54 Review of Systems Review of Systems: Constitutional : No Fever, No Chills, No Fatigue ENT/Mouth : No sore throat, No Rhinorrhea Eyes: No Eye Pain, No Swelling, No Redness Cardiovascular : No Chest Pain, No SOB, No Dyspnea on Exertion Respiratory : No Cough, No Sputum Gastrointestinal : pos Nausea, No Vomiting, No Diarrhea, No abdominal Pain Genitourinary : No Dysuria, No Urinary Frequency, No Hematuria, Musculoskeletal : No joint pain, No Myalgias, No Joint Swelling Skin : No Skin Lesions, No rash Neuro : No Weakness, No Numbness, pos Dizziness, no Headache Psych : No Anxiety/Panic, No Depression All other systems reviewed and are negative [facility] Past Medical History Attestation statement: The following information was validated with the patient. Source: old records reviewed Medical History GERD (gastroesophageal reflux disease) Diverticulitis HTN (hypertension) PVCs (premature ventricular contractions) Surgical History Hx of tonsillectomy History of ear surgery History of bladder surgery H/O mastoidectomy H/O esophagogastroduodenoscopy Social History Social History Alcohol intake: current Alcohol intake frequency: 0-2 drinks per day Patient Tobacco Use Status: Never used Tobacco Smoked in Last 30 Days: No Use of substances other than those prescribed or required for medical reasons: No Advance Directives: No Advance Directives Information Provided: No Physical Exam Vital Signs: Vital Signs: Last Vital Signs Temp 98 F 07/03/23 12:55 Pulse 73 07/03/23 21:59 Resp 16 07/03/23 21:59 BP 141/62 H 07/03/23 21:59 Pulse Ox 99 07/03/23 21:59 O2 Del Method Room Air 07/03/23 21:59 BMI result Body Mass Index 37.8 Appearance: Alert. Oriented X3. No acute distress. Eyes: Pupils equal, round and reactive to light. No nystagmus ENT: Pharynx normal. bilateral scarred TMs Neck: Normal inspection. Neck supple. CVS: Normal heart rate and rhythm. Pulses normal. Respiratory: No respiratory distress. Breath sounds normal. Abdomen: Soft and nontender. Skin: Skin warm and dry. Normal skin color. Normal skin turgor. Extremities: No lower extremity edema. No calf ttp Neuro: Oriented X 3. No motor deficit. No sensory deficit. no drift, uses a cane to walk, does not lean, appears unsteady and needs to ambulate Course Course Course Narrative: RME: 68 yo F w/PMHx HTN, GERD, PVCs, c/o dizziness x Sunday described as feeling like shes on a boat/unbalanced. States could not walk straight, was in [place], [place]. Also reports nausea. Sx worse with head movement and position changes. denies OGDEN or taking AC Admits to similar sx in the past w/BPPV > Tried Eply maneuver at home without relief. denies taking her BP meds today No focal neuro deficits. EKG, Labs, UA, Head CT, orthostatics ordered Full HPI, ROS and PE to be performed by primary ED provider. Reevaluation(s) Reevaluation #1: after fluids and meclizine still very dizzy cannot ambulate will try to admit for MRI in AM - still very unsteady. Did notify her of tonsilar lesion Reevaluation #2: negative orthostatic VS Medications Administered Discontinued Medications Generic Name Dose Route Start Last Admin Trade Name Wilfridoq PRN Reason Stop Dose Admin Diltiazem HCl 180 mg 07/03/23 19:45 07/03/23 20:16 Diltiazem Hcl Sr 90 Mg Cap.Er.12h PO 07/03/23 19:46 180 mg ONCE ONE Administration Protocol Sodium Chloride 1,000 mls @ 999 mls/hr 07/03/23 21:15 07/03/23 22:18 Ns IV 07/03/23 22:15 Infused .Q1H1M STA Infusion Iohexol 100 ml 07/03/23 20:54 07/03/23 20:54 Iohexol 350 Mg/Ml 100 Ml Infus..Btl IV 07/03/23 20:55 70 ml ONCE ONE Administration Losartan Potassium 100 mg 07/03/23 19:45 07/03/23 20:09 Losartan Potassium 50 Mg Tablet PO 07/03/23 19:46 100 mg ONCE ONE Administration Protocol Meclizine HCl 25 mg 07/03/23 19:45 07/03/23 20:09 Meclizine Hcl 25 Mg Tablet PO 07/03/23 19:46 25 mg ONCE ONE Administration Medical Decision Making Medical Decision Making MDM Narrative: 68 yo female with PMH of HTN, PVCs, vertigo, R prior ear surgery and revisions multiple due to polyp issue as a child here with c/o lightheadedness and difficulty walking since Sunday evening a preceding event was traveling up [facility] and she felt her ear pop - this could be vertigo given onset. At this time will obtain labs, EKG, give her home BP medications and obtain CTA as I cannot get MRI. Posterior stroke possible but has no other neurologic symptoms will reassess. Differential Diagnosis Differential Diagnoses: The differential diagnosis associated with the presentation includes vertigo, anemia, dehydration, HTN, posterior stroke Admission/Observation Consideration of admission/observation: Escalation of care including admission/observation considered admit as she cannot walk and is still dizzy will see if we can get MRI in AM Consult Healthcare Provider Management of the patient was discussed with: Hospitalist (will admit) Lab Data [facility] Lab Attestation statement: I reviewed the patient's lab results. 07/03/23 13:14 07/03/23 13:14 Labs: Lab Results 07/03/23 07/03/23 Range/Units 13:14 20:15 WBC 7.5 (4.8-10.8) X10*3/uL RBC 5.23 (4.20-5.50) X10*6/uL Hgb 15.9 (12.0-16.0) g/dl Hct 48.6 H (37.0-47.0) % MCV 92.9 (80.0-98.0) fL MCH 30.4 (27.0-33.0) pg MCHC 32.7 (31.0-35.0) g/dl RDW 12.7 (11.0-16.0) % Plt Count 319 (160-400) X10*3/uL MPV 10.5 (9.4-12.3) fL Immature Gran % (Auto) 0.3 (0.0-0.4) % Neut % (Auto) 66.7 (45-73) % Lymph % (Auto) 23.6 (20-40) % [place] % (Auto) 8.2 (2-11) % Eos % (Auto) 0.8 (0-4) % Baso % (Auto) 0.4 (0-2) % Lymph # (Auto) 1.8 (1.2-4.9) X10*3/uL [place] # (Auto) 0.6 (0.1-1.2) X10*3/uL Eos # (Auto) 0.1 (0.0-0.4) X10*3/uL Baso # (Auto) 0.0 (0.0-0.2) X10*3/uL Abs Immat Gran (auto) 0.02 (0.00-0.03) X10*3/uL Absolute Neuts (auto) 5.0 (2.0-8.3) x10*3/uL Absolute Nucleated RBC 0.000 (0.0-0.012) X10*3/uL Nucleated RBC % (auto) 0.0 (0.0-0.2) /100WBC PT 12.6 (11.1-13.3) SEC INR 1.0 (0.9-1.1) Sodium 143 (135-145) mmol/L Potassium 4.3 (3.3-5.1) mmol/L Chloride 106 (96-108) mmol/L Carbon Dioxide 28 (22-29) mmol/L Anion Gap 13 (12-20) BUN 16 (9-16) mg/dL Creatinine 0.80 (0.5-1.4) mg/dL Estim Creat Clear Calc 79.5 Estimated GFR > 60 Random Glucose 110 (60-115) mg/dL Calcium 10.2 (8.4-10.2) mg/dL Magnesium 2.4 (1.6-2.6) mg/dL Total Bilirubin 0.6 (0.0-1.0) mg/dL Direct Bilirubin 0.2 (0.0-0.5) mg/dL AST 22 (5-31) U/L ALT 27 (0-31) U/L Alkaline Phosphatase 83 (39-117) U/L Troponin I High Sens < 2.7 (<3.5-17.0) ng/L Total Protein 7.8 (6.5-8.0) g/dL Albumin 4.6 (3.5-5.0) g/dL Urine Color Yellow Urine Appearance Clear Urine pH 5.5 (5.0-9.0) Ur Specific [place] 1.020 (1.005-1.025) Urine Protein Negative (Neg-Trace) mg/dL Urine Glucose (UA) Negative (Negative) mg/dL Urine Ketones 15 (Negative) mg/dL Urine Blood Negative (Negative) Urine Nitrite Negative (Negative) Ur Leukocyte Esterase Trace H (Negative) Urine RBC 6-10 H (0-2) /HPF Urine WBC 0-5 (0-5) /HPF Ur Squamous Epith Cells 3-5 (0-2) /HPF Urine Bacteria None Seen (None Seen) Hyaline Casts 0-2 (0-2) /LPF Influenza Type A (ARABELLA) Negative (Negative) Influenza Type B (ARABELLA) Negative (Negative) Influenza A & B Note See Note Independent Interpretation I performed an independent interpretation of an: EKG and CT Scan (normal ) Interpretation: Rate: 85 Rhythm: NSR occ PVCs [place]: left Normal P waves. Normal AMANDO. Normal QRS complex. ST T wave : normal no JANAK , inverted t wave III qTC: normal prior studies: no acute ischemia The study has been interpreted contemporaneously by me. . Radiology Impression Discussion of test interpretation with radiology: I have reviewed the radiologist's reading. Independent Historian Clinical information obtained from an independent historian. History obtained from or confirmed by: Spouse Discharge Plan Discharge Clinical Impression: Dizziness Patient Disposition: Admitted As Inpatient
[2023-07-03 12:55] VITALS: BP 177/91; PULSE 90; RESP 19; TEMP 36.6; O2SAT 95; BMI 37.8
[2023-07-03 13:20] LABS: MANUAL DIFF FLAG NO
[2023-07-03 13:24] LABS: Basophils Percent Auto 0.4 % (0-2); Eosinophils Absolute Auto 0.1 X10*3/uL (0.0-0.4); Eosinophils Percent Auto 0.8 % (0-4); Hematocrit 48.6 % (37.0-47.0); Hemoglobin 15.9 g/dl (12.0-16.0); Imm Gran Abs Auto 0.02 X10*3/uL (0.00-0.03); Imm Gran Pct Auto 0.3 % (0.0-0.4); Lymphocytes Absolute Auto 1.8 X10*3/uL (1.2-4.9); Lymphocytes Percent Auto 23.6 % (20-40); Mean Corpuscular HGB Conc 32.7 g/dl (31.0-35.0); Mean Corpuscular Hemoglobin 30.4 pg (27.0-33.0); Mean Corpuscular Volume 92.9 fL (80.0-98.0); Mean Platelet Volume 10.5 fL (9.4-12.3); Monocytes Absolute Auto 0.6 X10*3/uL (0.1-1.2); Monocytes Percent Auto 8.2 % (2-11); Neutrophils Percent Auto 66.7 % (45-73); Platelet Count 319 X10*3/uL (160-400); Red Blood Count 5.23 X10*6/uL (4.20-5.50); Red Cell Distribution Width 12.7 % (11.0-16.0); White Blood Count 7.5 X10*3/uL (4.8-10.8)
[2023-07-03 13:30] LABS: Prothrombin Time 12.6 SEC (11.1-13.3)
[2023-07-03 13:36] LABS: Alanine Aminotransferase 27 U/L (0-31); Albumin Level 4.6 g/dL (3.5-5.0); Alkaline Phosphatase 83 U/L (39-117); Anion Gap 13 (12-20); Aspartate Amino Transferase 22 U/L (5-31); Bilirubin Direct 0.2 mg/dL (0.0-0.5); Bilirubin Total 0.6 mg/dL (0.0-1.0); Blood Urea Nitrogen 16 mg/dL (9-16); Calcium 10.2 mg/dL (8.4-10.2); Carbon Dioxide 28 mmol/L (22-29); Chloride 106 mmol/L (96-108); Creatinine Clr Calc Pharmacy 79.5; Estimated Glomerular Filt Rate > 60; Glucose Random 110 mg/dL (60-115); Magnesium 2.4 mg/dL (1.6-2.6); Potassium 4.3 mmol/L (3.3-5.1); Sodium 143 mmol/L (135-145); Total Protein 7.8 g/dL (6.5-8.0)
[2023-07-03 13:39] LABS: IDNOW Serial# BCCEAD1C; Influenza A Negative (Negative); Influenza B2 Negative (Negative)
[2023-07-03 14:19] LABS: Troponin-I High Sensitivity < 2.7 ng/L (<3.5-17.0)
[2023-07-03 19:22] VITALS: BP 193/79; PULSE 89
[2023-07-03 19:23] VITALS: BP 176/93; BP 202/87; PULSE 80; PULSE 92
[2023-07-03 19:24] VITALS: BP 194/78; PULSE 89; RESP 16; O2SAT 95
[2023-07-03] MEDS: Losartan Potassium 50 MG TABLET 100 MG PO (20:09)
[2023-07-03] MEDS: Meclizine HCl 25 MG TABLET PO (20:09)
[2023-07-03] MEDS: dilTIAZem HCL SR 90 MG CAP.ER.12H 180 MG PO (20:16)
[2023-07-03 20:25] LABS: Appearance Urine Clear; Color Urine Yellow; Glucose Urine UA Negative (Negative); Leukocyte Esterase Urine Trace (Negative); Nitrite Urine Negative (Negative); PH 5.5 (5.0-9.0); UMIC TRIGGER UACC YES; Urine Blood Negative (Negative); Urine Ketones 15 mg/dL (Negative); Urine Protein Negative (Neg-Trace)
[2023-07-03] MEDS: iohexoL 350 MG/ML 100 ML INFUS..BTL IV (20:54)
[2023-07-03] MEDS: 0.9 % Sodium Chloride 1,000 ML 999 ML IV (21:15)
[2023-07-03 21:17] LABS: Bacteria Urine None Seen (None Seen); Hyaline Casts Urine 0-2 /LPF (0-2); WBC Urine 0-5 /HPF (0-5)
[2023-07-03 21:59] VITALS: BP 141/62; PULSE 73; RESP 16; O2SAT 99
--- NOTE | 2023-07-03 22:44 | PHA.MEDREC ---
Pharmacy Consult ? Medication Reconciliation Pharmacy has completed the medication reconciliation. Patient reported all medications. Delores Greer, ChaparroD
--- NOTE | 2023-07-03 23:34 | PM.IMHP ---
History of Present Illness Date of Service: 07/03/23 Attending physician on admission: Markel Yang Chief Complaint: Dizziness x 3 days Patient is a 68 year old obese white female with PMH of vertigo, PVC's, hypothyroidism and hypertension presents to the emergency room complaining dizziness, unsteady gait and nausea for the last 3 days. She reports travelling to [place] on 06/29 and then on 06/30, while driving through the [place], she heard her ears pop and that since then, she has been feeling dizzy, her gait has been unsteady and she has also been nauseated. She states that when she woke up on Sunday 07/01, her symptoms were still presents and were bit relieved with the Janki manoeuvres that she performed and instead got worse during the course of the day. She got to a point where she could not walk and so had her pick her up and bring her back home. She contacted her primary care providers office yesterday hoping to be seen but they were not able to so. Today, her took her to an urgent care facility from where she was referred top the emergency room. Her initial vital signs were notable for elevated blood pressure at 180/90 mmHg. However, all work up done here today has been unrevealing with normal blood work and normal imaging studies including a CT scan of the brain and a CTA of the head and neck. She unfortunately is still very dizzy and unsteady on her feet and cannot ambulate even with support. Admission ahs therefore been requested for further management. Review of Systems Review of Systems: Yes all other systems are reviewed and are negative [facility] Medical History GERD (gastroesophageal reflux disease) Diverticulitis HTN (hypertension) PVCs (premature ventricular contractions) Functional capacity: independent ambulation Patient : No Pertinent family history: Reviewed with patient and not pertinent to current admission Surgical History Hx of tonsillectomy History of ear surgery History of bladder surgery H/O mastoidectomy H/O esophagogastroduodenoscopy Social History Household Members: Spouse Housing: House Alcohol intake: current Alcohol intake frequency: 0-2 drinks per day Patient Tobacco Use Status: Never used Tobacco Smoked in Last 30 Days: No Use of substances other than those prescribed or required for medical reasons: No Currently Displaying Signs/Symptoms of Drug Intoxication Withdrawal: No Any prior treatment program specific to substance use: No Have you been hit, kicked, punched, or otherwise hurt by someone within the past year? If so, by whom?: No Do you feel safe in your current relationship?: No Is there a partner from a previous relationship who is making you feel unsafe now?: No Are you made to feel afraid or neglected: No Advance Directives: No Advance Directives Information Provided: No Advance Directives on File: No Do you have thoughts of harming others: None Do you have a plan to hurt others: No Plan Recently lost weight without trying: No Nutrition Risks: No Nutritional Risk Patient : No : No Poor oral hygiene: No Meds Allergies Allergy/AdvReac Type Severity Reaction Status Date / Time levofloxacin [From Levaquin] Allergy Severe RED Verified 07/03/23 12:54 SKIN/BURNING SENSATION, rash metoprolol [METOPROLOL] Allergy Severe severe Verified 07/03/23 12:54 muscle weakness pineapple [PINEAPPLE] Allergy Severe TONGUE Verified 07/03/23 12:54 SWELLING propranolol [PROPRANOLOL] Allergy Intermediate DYSPNEA/DEPRESSION, Verified 07/03/23 12:54 depression Sulfa (Sulfonamide Allergy Intermediate RASH Verified 07/03/23 12:54 Antibiotics) lisinopril Allergy Unknown cough Verified 07/03/23 12:54 venom-wasp Allergy Unknown severe Verified 07/03/23 12:54 local reaction Flexeril Allergy Unknown nausea Uncoded 07/03/23 12:54 Home Medications Medication Instructions Recorded Confirmed Last Taken Type cholecalciferol (vitamin D3) 25 25 mcg PO DAILY 02/23/22 07/03/23 Unknown History mcg (1,000 unit) capsule diltiazem HCl 180 mg 180 mg PO DAILY 02/23/22 07/03/23 Unknown History capsule,extended release 24 hr levothyroxine 100 mcg tablet 150 mcg PO SUWE@0600 02/23/22 07/03/23 Unknown History losartan 100 mg tablet 100 mg PO DAILY 02/23/22 07/03/23 Unknown History multivitamin (Multiple Vitamins 1 tab PO DAILY 02/23/22 07/03/23 Unknown History tablet) levothyroxine 100 mcg tablet 100 mcg PO VALERIA@0600 07/03/23 07/03/23 Unknown History magnesium 250 mg tablet 250 mg PO DAILY 07/03/23 07/03/23 Unknown History Physical Exam Vital Signs and Narrative: Vital Signs: Last Vital Signs Temp 98 F 07/03/23 12:55 Pulse 73 07/03/23 21:59 Resp 16 07/03/23 21:59 BP 141/62 H 07/03/23 21:59 Pulse Ox 99 07/03/23 21:59 O2 Del Method Room Air 07/03/23 21:59 BMI result Body Mass Index 37.8 General: Well nourished. Awake, alert and oriented x 4. No apparent distress Eyes: No pallor or jaundice. PERRLA, EOMI. No nystagmus. HENT: Moist oral mucus membranes. No oropharyngeal lesions. Neck: Supple. No cervical adenopathy. No JVD Cardiovascular: Regular rate and rhythm. Normal heart sounds. No murmurs, rubs or gallops. No JVD. No peripheral edema. Respiratory: Normal respiratory effort with no accessory muscle use. CTAB. Gastrointestinal: Abdomen is soft, non-tender, non-distended. Normoactive bowel sounds. No hepatosplenomegaly Extremities: No edema. No calf tenderness. Good peripheral pulses Skin: Warm/Dry. No rashes. No mottling. Capillary refill is < 2 seconds Neurological: AAOx4. Intact speech & cognition. Normal gait & balance. CN II - XII grossly intact but not individually tested. No motor or sensory deficits Hematologic: No bleeding. No ecchymosis. No swollen or tender lymph nodes. Psychiatric: Cooperative. Appropriate mood and affect Results Labs 07/03/23 13:14 07/03/23 13:14 Labs: Laboratory Results - last 24 hr 07/03/23 07/03/23 13:14 20:15 MCV 92.9 MCH 30.4 MCHC 32.7 RDW 12.7 Plt Count 319 MPV 10.5 Immature Gran % (Auto) 0.3 Neut % (Auto) 66.7 Lymph % (Auto) 23.6 [place] % (Auto) 8.2 Eos % (Auto) 0.8 Baso % (Auto) 0.4 Lymph # (Auto) 1.8 [place] # (Auto) 0.6 Eos # (Auto) 0.1 Baso # (Auto) 0.0 Abs Immat Gran (auto) 0.02 Absolute Neuts (auto) 5.0 Absolute Nucleated RBC 0.000 Nucleated RBC % (auto) 0.0 PT 12.6 INR 1.0 Anion Gap 13 Estim Creat Clear Calc 79.5 Estimated GFR > 60 Random Glucose 110 Calcium 10.2 Magnesium 2.4 Total Bilirubin 0.6 Direct Bilirubin 0.2 AST 22 ALT 27 Alkaline Phosphatase 83 Total Protein 7.8 Albumin 4.6 Urine Color Yellow Urine Appearance Clear Urine pH 5.5 Ur Specific [place] 1.020 Urine Protein Negative Urine Glucose (UA) Negative Urine Ketones 15 Urine Blood Negative Urine Nitrite Negative Ur Leukocyte Esterase Trace H Urine RBC 6-10 H Urine WBC 0-5 Ur Squamous Epith Cells 3-5 Urine Bacteria None Seen Hyaline Casts 0-2 Influenza Type A (ARABELLA) Negative Influenza Type B (ARABELLA) Negative Influenza A & B Note See Note ECG ECG interpretation date: 07/03/23 ECG interpretation time: 23:36 Prior ECG tracings: not available for review Interpretation: NSR at 8 bpm with normal axis and ID intervals. No acute ischemic changes Imaging Radiologist's Impressions: Impressions Head CT 07/03/23 14:18 IMPRESSION: 1. Unremarkable noncontrast brain CT. No acute hemorrhage, mass effect or shift. Head/Neck CTA 07/03/23 20:56 IMPRESSION: CTA NECK: No hemodynamically significant stenosis. Mild asymmetric prominence of the right lingual tonsil protruding into the right vallecula. Clinical correlation is recommended. CTA HEAD: No proximal vessel occlusion or high-grade stenosis. Assessment and Plan (1) Dizziness: Status: Acute (2) Hypertensive urgency: Status: Acute (3) Obesity (BMI 35.0-39.9 without comorbidity): Status: Acute Plan 68 year old obese white female with PMH of vertigo, PVC's, hypothyroidism and hypertension here with 1. Dizziness, unsteady gait and nausea - presentation is concerning for an inner ear problem vs posterior circulation CVA - however CT head is unrevealing - admit and get brain MRI, 2 D echo and neurology consult - start on aspirin and statins 2. Hypertensive urgency - resume Diltiazem and Losartan 3. Hypothyroidism - resume Levothyroxine 4. Obesity - BMI 37.8 - encourage weight loss DVT: SC Lovenox CODE STATUS: Full code Admission for at least 2 midnights for management of persistent dizziness with concern for posterior circulation stroke. Total time managing care of this patient today: 75 minutes. Quality Stroke Does the patient have a stroke diagnosis?: No VTE Prior VTE?: No VTE Risk Level:: Medical - moderate - high VTE Device Contraindication: N/A - Device Ordered VTE Drug Contraindication: N/A - Med Ordered
[2023-07-04] MEDS: Enoxaparin Sodium 40 MG/0.4 ML SYRINGE SUBCUT (00:27)
[2023-07-04 01:43] VITALS: BP 175/80; PULSE 79; RESP 18; TEMP 36.4; O2SAT 95
[2023-07-04] MEDS: 0.9 % Sodium Chloride Flush 3 ML SYRINGE IVFLUSH ×2 (03:09→08:06)
[2023-07-04 03:31] VITALS: BP 144/58; PULSE 66; RESP 20; TEMP 35.9; O2SAT 93
--- NOTE | 2023-07-04 07:00 | CA_ITS ---
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 There is mildly increased left ventricular wall thickness. The visually estimated ejection fraction is between 60-65%. - Normal right ventricular cavity size and systolic function. - The left atrium is normal in size. Findings Left Ventricle Normal left ventricular size and systolic function. There is mildly increased left ventricular wall thickness. The visually estimated ejection fraction is between 60-65%. There is no evidence of regional wall motion abnormalities. Diastolic function is normal for age. Right Ventricle Normal right ventricular cavity size and systolic function. Atria The left atrium is normal in size. Aortic Valve Normal aortic valve structure and function. There is no aortic valve stenosis. There is no aortic valve regurgitation. Mitral Valve Normal mitral valve structure and function. There is no mitral valve regurgitation. There is no mitral valve stenosis. Pulmonic Valve Normal pulmonic valve structure and function. There is trace pulmonic valve regurgitation. Tricuspid Valve Normal tricuspid valve structure. There is trace tricuspid valve regurgitation. Tricuspid regurgitation envelope is inadequate for calculation of right ventricular systolic pressure. Normal right atrial pressure. Venous The inferior vena cava is normal in size and collapses greater than 50% with inspiration. Pericardium/Pleural There is no evidence of pericardial effusion. Measurements 2D Linear Measurements IVSd: 1.09 0.6-0.9/0.6-1.0 cm LVIDd: 4.65 3.9-5.3/4.2-5.9 cm LVIDd Index: 2.28 2.4-3.2/2.2-3.1 cm/m2 LVIDs: 2.88 2.0-3.6 cm LVPWd: 1.09 0.7-1.1 cm LA Diam: 4.40 2.7-3.8/3.0-4.0 cm LAIDs Index: 2.16 1.5-2.3 cm/m2 LV Mass: 226.79 67-162/88-224 g LV Mass Index: 111.17 43-95/49-115 g/m2 Mitral Valve MV Pk E: 0.56 MV PK A: 1.02 MV Decel Time: 277.00 E/A: 0.50 E'Lateral: 10.10 E'Medial: 5.98 E/E' Med: 9.30 E/E' Lat: 5.50 PHT: 81.00 MVA PHT: 2.72 Decel [place]: 2.01 Aortic Valve AoV Pk Dusty: 1.75 AoV Mn Dusty: 1.14 AoV VTI: 0.38 AoV Pk Grad: 12.00 Aov Mn Grad: 6.00 Diastolic Function MV Pk E: 0.56 MV Pk A: 1.02 E/A: 0.50 E'Medial: 5.98 E/E' Med: 9.30 E' Laterial: 10.10 E/E' Lat: 5.50 Right Ventricle TAPSE (mm): 24.90 TVS' Dusty: 17.40 Tricuspid Valve TR Pk Dusty: 1.94 TR Pk Grad: 15.00 Pulmonary Valve PV Pk Dusty: 0.74 Peak PV Grad: 2.00 Updated in Other Vendor System with Status of Final Lawrence Araya MD electronically signed on 07/04/2023 2:25:21 PM with status of Final
[2023-07-04 07:14] VITALS: BP 150/75; PULSE 60; RESP 20; TEMP 36.4; O2SAT 95
[2023-07-04 07:46] LABS: Cholesterol 193 mg/dL (<200); HDL Cholesterol 62 mg/dL (>40); LDL Cholesterol Calculated 117 mg/dL (<100); Triglycerides 70 mg/dL (<150)
[2023-07-04 07:53] LABS: Reflex LDLD? No
[2023-07-04] MEDS: Aspirin 81 MG TAB.CHEW PO (08:06)
[2023-07-04] MEDS: Docusate Sodium 100 MG CAPSULE PO (08:06)
[2023-07-04 08:39] LABS: Free T4 (Free Thyroxine) 1.13 ng/dL (0.71-1.85)
[2023-07-04 09:07] VITALS: BP 150/75; PULSE 60; O2SAT 95
--- NOTE | 2023-07-04 10:04 | P.CNNE_ITS ---
History of Present Illness Data of Consult Service Date: 07/04/23 Primary Care Provider: Ronan Flynn MD [facility] Reason for consult: Dizziness 68 years old woman with history of dizziness presented with another episode of dizziness, which was described as a feeling 1 would get while on a boat. There was no associated numbness paralysis speech or language difficulty pain or mental confusion. Bending or turning was making her dizziness worse. There was no associated here symptom. Review of Systems 2 Review of Systems: No recent cold or flu-like illness PMFSH Past Medical History Medical History GERD (gastroesophageal reflux disease) Diverticulitis HTN (hypertension) PVCs (premature ventricular contractions) Functional capacity: independent ambulation Surgical History Surgical History Hx of tonsillectomy History of ear surgery History of bladder surgery H/O mastoidectomy H/O esophagogastroduodenoscopy Social History Social History Household Members: Spouse Housing: House Alcohol intake: current Alcohol intake frequency: 0-2 drinks per day Patient Tobacco Use Status: Never used Tobacco Smoked in Last 30 Days: No Use of substances other than those prescribed or required for medical reasons: No Currently Displaying Signs/Symptoms of Drug Intoxication Withdrawal: No Any prior treatment program specific to substance use: No Have you been hit, kicked, punched, or otherwise hurt by someone within the past year? If so, by whom?: No Do you feel safe in your current relationship?: No Is there a partner from a previous relationship who is making you feel unsafe now?: No Are you made to feel afraid or neglected: No Advance Directives: No Advance Directives Information Provided: No Advance Directives on File: No Do you have thoughts of harming others: None Do you have a plan to hurt others: No Plan Recently lost weight without trying: No Nutrition Risks: No Nutritional Risk Patient : No : No Poor oral hygiene: No Meds Allergies Allergy/AdvReac Type Severity Reaction Status Date / Time levofloxacin [From Levaquin] Allergy Severe RED Verified 07/03/23 12:54 SKIN/BURNING SENSATION, rash metoprolol [METOPROLOL] Allergy Severe severe Verified 07/03/23 12:54 muscle weakness pineapple [PINEAPPLE] Allergy Severe TONGUE Verified 07/03/23 12:54 SWELLING propranolol [PROPRANOLOL] Allergy Intermediate DYSPNEA/DEPRESSION, Verified 07/03/23 12:54 depression Sulfa (Sulfonamide Allergy Intermediate RASH Verified 07/03/23 12:54 Antibiotics) lisinopril Allergy Unknown cough Verified 07/03/23 12:54 venom-wasp Allergy Unknown severe Verified 07/03/23 12:54 local reaction Flexeril Allergy Unknown nausea Uncoded 07/03/23 12:54 Active Medications: Current Medications Acetaminophen (Acetaminophen 325 Mg Tablet) 650 mg PO Q6H PRN PRN Reason: Pain, Mild (Pain Scale 1-3) Al Hydroxide/Mg Hydroxide (Magnesium Hydrox/Alum Hydrox 30 Ml Oral.Susp) 30 ml PO Q4H PRN PRN Reason: Heartburn/Nausea Aspirin (Aspirin 81 Mg Tab.Chew) 81 mg PO DAILY [facility] Last Admin: 07/04/23 08:06 Dose: 81 mg Docusate Sodium (Docusate Sodium 100 Mg Capsule) 100 mg PO BID [facility] Last Admin: 07/04/23 08:06 Dose: 100 mg Enoxaparin Sodium (Enoxaparin Sodium 40 Mg/0.4 Ml Syringe) 40 mg SUBCUT 2100 [facility] Last Admin: 07/04/23 00:27 Dose: 40 mg Levothyroxine Sodium (Levothyroxine Sodium 100 Mcg Tablet) 100 mcg PO MOTUTHFRSA@0600 [facility] Levothyroxine Sodium (Levothyroxine Sodium 150 Mcg Tablet) 150 mcg PO SUWE@0600 [facility] Melatonin (Melatonin 3 Mg Tablet) 6 mg PO BEDTIME PRN PRN Reason: Insomnia Ondansetron HCl (Ondansetron Hcl 4 Mg/2 Ml Vial) 4 mg IVPUSH Q8H PRN PRN Reason: Nausea and Vomiting Senna (Sennosides 8.6 Mg Tablet) 17.2 mg PO BEDTIME PRN PRN Reason: Constipation Sodium Chloride (0.9 % Sodium Chloride Flush 3 Ml Syringe) 3 ml IVFLUSH QSHIFT [facility] Last Admin: 07/04/23 08:06 Dose: 3 ml Home Medications Medication Instructions Recorded Confirmed Last Taken Type cholecalciferol (vitamin D3) 25 25 mcg PO DAILY 02/23/22 07/03/23 Unknown History mcg (1,000 unit) capsule diltiazem HCl 180 mg 180 mg PO DAILY 02/23/22 07/03/23 Unknown History capsule,extended release 24 hr levothyroxine 100 mcg tablet 150 mcg PO SUWE@0600 02/23/22 07/03/23 Unknown History losartan 100 mg tablet 100 mg PO DAILY 02/23/22 07/03/23 Unknown History multivitamin (Multiple Vitamins 1 tab PO DAILY 02/23/22 07/03/23 Unknown History tablet) levothyroxine 100 mcg tablet 100 mcg PO MOTUTHFRSA@0600 07/03/23 07/03/23 Unknown History magnesium 250 mg tablet 250 mg PO DAILY 07/03/23 07/03/23 Unknown History Physical Exam 2 Vital Signs: Vital Signs: Last Vital Signs Temp 97.5 F 07/04/23 07:14 Pulse 60 07/04/23 09:07 Resp 20 07/04/23 07:14 BP 150/75 H 07/04/23 09:07 Pulse Ox 95 07/04/23 09:07 O2 Del Method Room Air 07/04/23 07:14 BMI result Body Mass Index 37.8 Neuro: Other: She is alert and awake with normal spontaneity of speech fluency comprehension and affect. Deep tendon reflexes are trace. Speech is normal. Visual steiner are full. There is no nystagmus. Results Labs 07/03/23 13:14 07/03/23 13:14 Labs: Short CBC 07/03/23 Range/Units 13:14 WBC 7.5 (4.8-10.8) X10*3/uL Hgb 15.9 (12.0-16.0) g/dl Hct 48.6 H (37.0-47.0) % Plt Count 319 (160-400) X10*3/uL BMP 07/03/23 13:14 Sodium 143 Potassium 4.3 Chloride 106 Carbon Dioxide 28 BUN 16 Creatinine 0.80 Calcium 10.2 Liver Function 07/03/23 Range/Units 13:14 Total Bilirubin 0.6 (0.0-1.0) mg/dL Direct Bilirubin 0.2 (0.0-0.5) mg/dL AST 22 (5-31) U/L ALT 27 (0-31) U/L Alkaline Phosphatase 83 (39-117) U/L Albumin 4.6 (3.5-5.0) g/dL Urine 07/03/23 Range/Units 20:15 Urine Color Yellow Urine Appearance Clear Urine pH 5.5 (5.0-9.0) Ur Specific [place] 1.020 (1.005-1.025) Urine Protein Negative (Neg-Trace) mg/dL Urine Glucose (UA) Negative (Negative) mg/dL Head CT and CTA of brain and neck did not reveal any significant abnormality per Assessment and Plan (1) Dizziness: Status: Acute Probably multifactorial dizziness. She is prone to vestibular type peripheral word ago. Blood pressure was quite high, which can also result in hypertensive encephalopathy resulting in dizziness. She should be properly treated for blood pressure and take her medicines regularly. Baby aspirin daily is recommended with statin to prevent strokes. As far as physical management of dizziness is concerned, bedside exercises were explain to her. Mainstay of management is blood pressure control and common sense prevention to avoid any falling Procedures Date of Service Date of Service: 07/04/23
--- NOTE | 2023-07-04 10:18 | MHC.CM.PN ---
Pt lives at home with her , is self-care. Pts will transport her home. HCP completed with pt, now on file. PCP: Dr. Ronan Flynn
[2023-07-04 11:07] VITALS: BP 148/75; PULSE 66; RESP 20; TEMP 36.9; O2SAT 94
--- NOTE | 2023-07-04 14:12 | HO.PM.IMPN ---
Subjective Subjective Date of Service: 07/04/23 Interval History: Dizziness unchanged from admission. No new symptoms Review of Systems Denies chest pain Denies shortness of breath Denies diarrhea vomiting commits to nausea Denies fever chills Physical Exam Vital Signs: Vital Signs: Last Vital Signs Temp 98.5 F 07/04/23 11:07 Pulse 66 07/04/23 11:07 Resp 20 07/04/23 11:07 BP 148/75 H 07/04/23 11:07 Pulse Ox 94 07/04/23 11:07 O2 Del Method Room Air 07/04/23 11:07 BMI result Body Mass Index 37.8 Const: Other: No acute issues Resp: Other: Clear to auscultation bilaterally no rales rhonchi or wheezes Cardio: Other: No S4; positive S1-S2; no S3 murmurs rubs or gallops GI: Other: Soft nontender nondistended normoactive bowel sounds Extrem: Other: No edema bilaterally Objective Data Active Medications Acetaminophen (Acetaminophen 325 Mg Tablet) 650 mg PO Q6H PRN PRN Reason: Pain, Mild (Pain Scale 1-3) Al Hydroxide/Mg Hydroxide (Magnesium Hydrox/Alum Hydrox 30 Ml Oral.Susp) 30 ml PO Q4H PRN PRN Reason: Heartburn/Nausea Aspirin (Aspirin 81 Mg Tab.Chew) 81 mg PO DAILY [facility] Last Admin: 07/04/23 08:06 Dose: 81 mg Documented By: RUSS Docusate Sodium (Docusate Sodium 100 Mg Capsule) 100 mg PO BID [facility] Last Admin: 07/04/23 08:06 Dose: 100 mg Documented By: RUSS Enoxaparin Sodium (Enoxaparin Sodium 40 Mg/0.4 Ml Syringe) 40 mg SUBCUT 2100 [facility] Last Admin: 07/04/23 00:27 Dose: 40 mg Documented By: JOSE Levothyroxine Sodium (Levothyroxine Sodium 100 Mcg Tablet) 100 mcg PO MOTUTHFRSA@0600 [facility] Levothyroxine Sodium (Levothyroxine Sodium 150 Mcg Tablet) 150 mcg PO SUWE@0600 [facility] Melatonin (Melatonin 3 Mg Tablet) 6 mg PO BEDTIME PRN PRN Reason: Insomnia Ondansetron HCl (Ondansetron Hcl 4 Mg/2 Ml Vial) 4 mg IVPUSH Q8H PRN PRN Reason: Nausea and Vomiting Senna (Sennosides 8.6 Mg Tablet) 17.2 mg PO BEDTIME PRN PRN Reason: Constipation Sodium Chloride (0.9 % Sodium Chloride Flush 3 Ml Syringe) 3 ml IVFLUSH QSHIFT [facility] Last Admin: 07/04/23 08:06 Dose: 3 ml Documented By: RUSS Labs 07/03/23 13:14 07/03/23 13:14 Labs: Laboratory Results - last 24 hr 07/03/23 07/04/23 20:15 07:02 Hold Purple Top SEE NOTE Triglycerides 70 Cholesterol 193 LDL Cholesterol, Calc 117 H HDL Cholesterol 62 TSH 0.20 L Free T4 1.13 Urine Color Yellow Urine Appearance Clear Urine pH 5.5 Ur Specific [place] 1.020 Urine Protein Negative Urine Glucose (UA) Negative Urine Ketones 15 Urine Blood Negative Urine Nitrite Negative Ur Leukocyte Esterase Trace H Urine RBC 6-10 H Urine WBC 0-5 Ur Squamous Epith Cells 3-5 Urine Bacteria None Seen Hyaline Casts 0-2 Assessment and Plan (1) Dizziness: Status: Acute (2) HTN (hypertension): Status: Acute Plan 68 year old obese white female with PMH of vertigo, PVC's, hypothyroidism and hypertension here with worsening dizziness 1. Dizziness, unsteady gait and nausea -CTA head neck negative; MRI done breathing pending -aspirin and statins -vestibular rehab as an outpatient 2. Hypertensive urgency - resume Diltiazem and Losartan -adjust as indicated 3. Hypothyroidism - resume Levothyroxine 4. Obesity - BMI 37.8 - encourage weight loss Lovenox Full code Patient require ongoing hospitalization complete workup for dizziness question vestibular origin Quality Stroke Does the patient have a stroke diagnosis?: No VTE Prior VTE?: No VTE Risk Level:: Medical - moderate - high VTE Device Contraindication: N/A - Device Ordered VTE Drug Contraindication: N/A - Med Ordered
--- NOTE | 2023-07-04 14:57 | P.DS_ITS ---
DS: Providers Provider Date of Service: 07/04/23 Date of admission: 07/03/23 23:31 Date of discharge: 07/04/23 Primary care physician: Ronan Flynn MD Consults: 07/04/23 03:25 Consult to Neurology Routine Consulting Provider: [facility] Reason for consultation: dissiness wih concern for P circ CVA DS: Diagnosis Discharge Diagnosis (1) Dizziness: Status: Acute (2) HTN (hypertension): Status: Acute DS: Summary Hospital Course Hospital Course: 68 year old obese white female with PMH of vertigo, PVC's, hypothyroidism and hypertension presents to the emergency room complaining dizziness, unsteady gait and nausea for the last 3 days. She reports travelling to [place] on 06/29 and then on 06/30, while driving through the [place], she heard her ears pop and that since then, she has been feeling dizzy, her gait has been unsteady and she has also been nauseated. She states that when she woke up on Sunday 07/01, her symptoms were still presents and were bit relieved with the Janki manoeuvres that she performed and instead got worse during the course of the day. She got to a point where she could not walk and so had her pick her up and bring her back home. She contacted her primary care providers office yesterday hoping to be seen but they were not able to so. Today, her took her to an urgent care facility from where she was referred top the emergency room. Her initial vital signs were notable for elevated blood pressure at 180/90 mmHg. However, all work up done here today has been unrevealing with normal blood work and normal imaging studies including a CT scan of the brain and a CTA of the head and neck. She unfortunately is still very dizzy and unsteady on her feet and cannot ambulate even with support. Hospital Course Admitted to telemetry will monitor failed to show any acute dysrhythmias that could be accountable for her symptoms. CTA head neck negative on admission; MRI of head negative. Over the next 24 hours after admission her symptoms improved to the point where she can not ambulate without issue. She was seen in consultation by Physical therapy who deemed her appropriate for outpatient vestibular rehab. At this point in time she is anxious for discharge will follow-up with her ENT as scheduled Time Attestation Discharge coordination time: Greater than 30 minutes Quality: Safe Use of Opioids Does Pt have an Active Cancer Diagnosis on the Problem List?: No Quality: Stroke Does the patient have a stroke diagnosis?: No Physical Exam Vital Signs: Vital Signs: Last Vital Signs Temp 98.5 F 07/04/23 11:07 Pulse 66 07/04/23 11:07 Resp 20 07/04/23 11:07 BP 148/75 H 07/04/23 11:07 Pulse Ox 94 07/04/23 11:07 O2 Del Method Room Air 07/04/23 11:07 BMI result Body Mass Index 37.8 Const: Other: No acute issues Resp: Other: Clear to auscultation bilaterally no rales rhonchi or wheezes Cardio: Other: No S4; positive S1-S2; no S3 murmurs rubs or gallops GI: Other: Soft nontender nondistended normoactive bowel sounds Extrem: Other: No edema bilaterally DS: Data Data Completed and Pending Labs on day of discharge: Laboratory Results - last 24 hr 07/03/23 07/04/23 20:15 07:02 Hold Purple Top SEE NOTE Triglycerides 70 Cholesterol 193 LDL Cholesterol, Calc 117 H HDL Cholesterol 62 TSH 0.20 L Free T4 1.13 Urine Color Yellow Urine Appearance Clear Urine pH 5.5 Ur Specific [place] 1.020 Urine Protein Negative Urine Glucose (UA) Negative Urine Ketones 15 Urine Blood Negative Urine Nitrite Negative Ur Leukocyte Esterase Trace H Urine RBC 6-10 H Urine WBC 0-5 Ur Squamous Epith Cells 3-5 Urine Bacteria None Seen Hyaline Casts 0-2 Discharge Plan Discharge Anticipated Discharge Date/Time: 07/04/23 14:50 Patient Disposition: Home Health Service Discharge Diagnosis: Multifactorial dizziness Referrals: Ronan Flynn MD [Primary Care Provider] - 1 Week Discharge Medications: New aspirin 81 mg Tablet,Chewable 81 mg PO DAILY Qty: 30 0RF Continued levothyroxine 100 mcg tablet 100 mcg PO MOTUTHFRSA@0600 magnesium 250 mg Tablet 250 mg PO DAILY losartan 100 mg tablet 100 mg PO DAILY diltiazem HCl 180 mg capsule,extended release 24hr 180 mg PO DAILY levothyroxine 100 mcg tablet 150 mcg PO SUWE@0600 cholecalciferol (vitamin D3) 25 mcg (1,000 unit) capsule 25 mcg PO DAILY multivitamin [Multiple Vitamins] Tablet 1 tab PO DAILY Discharge Orders: Discharge Order (Routine); Ordered 07/04/23 Ordered By: Rafiq Butler Diet: Advance to usual diet Activity on Discharge: As tolerated Stand Alone Forms: Patient Portal Discharge page Care Plan Goals: Resume all pre-hospital medications Health Concerns: Follow-up with PCP and/or ENT as scheduled; they will schedule outpatient vest ibular rehab Plan of Treatment: Outpatient vestibular rehab Assessment: See discharge summary
== END 2023-07-04 15:41 | disposition home health service (06) | DRG 305 ==
LOC: HO.ED 21:40 → HO.EDOVER 23:41 → HO.IMC 07-04 00:38
PROVIDERS: Physician Assistant; Admitting Provider Internal Medicine; Emergency Provider Emergency Medicine; PCP Internal Medicine; Visit Provider Hospitalist
DX: I16.0 Hypertensive urgency (principal); I10 Essential (primary) hypertension; R42 Dizziness and giddiness; E03.9 Hypothyroidism, unspecified; E66.9 Obesity, unspecified; Z68.37 Body mass index [BMI] 37.0-37.9, adult; Z79.890 Hormone replacement therapy; Z79.899 Other long term (current) drug therapy
CPT/HCPCS: 36415; 70450; 70496; 70498; 70551; 80048; 80061; 80076; 81001; 83735; 84439; 84443; 84484; 85025; 85610; 87502; 93005; 93306; 97162; 99221; 99285; J1650; Q9967

== ENCOUNTER → 2023-07-03 12:11 | Outpatient (BNV) | payer MEDICARE, SELFPAY | PROVIDERS: Admitting Provider Internal Medicine; Emergency Provider Emergency Medicine; PCP Internal Medicine; Visit Provider Internal Medicine Cardiovascular Disease | DX: I49.3 Ventricular premature depolarization (principal) | CPT/HCPCS: 93010 ==

== ENCOUNTER 2023-07-03 23:31 | Outpatient (BNV) | payer MEDICARE, SELFPAY | END 2023-07-04 07:00 | PROVIDERS: Admitting Provider Internal Medicine; Emergency Provider Emergency Medicine; PCP Internal Medicine; Visit Provider Internal Medicine Cardiovascular Disease | DX: I16.0 Hypertensive urgency (principal) | CPT/HCPCS: 93306 ==

== ENCOUNTER → 2023-07-03 23:31 | Outpatient (BNV) | payer OTHER, SELFPAY | PROVIDERS: Admitting Provider Internal Medicine; Emergency Provider Emergency Medicine; PCP Internal Medicine; Visit Provider Internal Medicine | DX: R42 Dizziness and giddiness (principal); I16.0 Hypertensive urgency; E66.9 Obesity, unspecified; Z68.37 Body mass index [BMI] 37.0-37.9, adult | CPT/HCPCS: 99223; 99239 ==

== ENCOUNTER 2023-08-02 16:36 | Outpatient (REF) | payer MEDICARE, SELFPAY ==
--- NOTE | ~2023-08-02 | MR_ITS ---
EXAMINATION: MRI OF THE BRAIN WITH AND WITHOUT IV CONTRAST INDICATION: Acoustic neuroma COMPARISON: MRI brain on 07/04/2023 TECHNIQUE: Multiplanar multisequence MR imaging of the brain was obtained without and following the administration of 10 mL of Gadavist without complication with dedicated IAC pulse series. FINDINGS: The inner ear structures including the cochlea, vestibules, and semicircular canals exhibit preserved CSF signal intensity with no pathologic enhancement. The vestibular aqueducts are not enlarged. Cranial nerves VII and VIII complexes are normal in morphology. No enhancing CP angle/retrocochlear lesion. No acute intracranial hemorrhage or infarct. Few scattered periventricular white matter T2/FLAIR hyperintensities, nonspecific however commonly seen with small vessel ischemic disease. No abnormal intraparenchymal enhancement. No midline shift or hydrocephalus. No acute extra-axial fluid collections. The osseous structures are unremarkable. The pituitary gland, pineal gland and remaining midline structures are unremarkable. No orbital pathology. The paranasal sinuses and mastoid air cells are clear. MR/MR head/brain wo/w con IMPRESSION: No retrocochlear pathology.
[2023-08-02] MEDS: gadobutroL 10 ML VIAL IVPUSH (18:10)
== END 2023-08-02 16:37 | disposition home or self-care (01) ==
LOC: HO.MRI 16:36
PROVIDERS: PCP Internal Medicine; Visit Provider Internal Medicine
DX: D33.3 Benign neoplasm of cranial nerves (principal); R42 Dizziness and giddiness
CPT/HCPCS: 70553; A9585

== ENCOUNTER 2023-10-04 09:00 | Outpatient (RCR) | payer MEDICARE, SELFPAY ==
[2023-09-24 07:12] VITALS: BP 116/64; PULSE 72; O2SAT 97
== END 2024-01-14 07:26 | disposition home or self-care (01) ==
LOC: HO.PTWFD 09:00
PROVIDERS: PCP Internal Medicine; Visit Provider Internal Medicine
DX: R42 Dizziness and giddiness (principal)
CPT/HCPCS: 95992; 97110; 97162; 97535

== ENCOUNTER 2023-11-26 07:44 | Outpatient (REF) | payer MEDICARE, SELFPAY ==
[2023-11-26 08:02] LABS: MANUAL DIFF FLAG NO
[2023-11-26 08:22] LABS: Basophils Percent Auto 0.5 % (0-2); Eosinophils Absolute Auto 0.1 X10*3/uL (0.0-0.4); Eosinophils Percent Auto 2.1 % (0-4); Imm Gran Abs Auto 0.01 X10*3/uL (0.00-0.03); Imm Gran Pct Auto 0.2 % (0.0-0.4); Lymphocytes Absolute Auto 1.6 X10*3/uL (1.2-4.9); Lymphocytes Percent Auto 25.6 % (20-40); Mean Corpuscular HGB Conc 33.3 g/dl (31.0-35.0); Mean Corpuscular Hemoglobin 30.8 pg (27.0-33.0); Mean Corpuscular Volume 92.4 fL (80.0-98.0); Mean Platelet Volume 10.2 fL (9.4-12.3); Monocytes Absolute Auto 0.7 X10*3/uL (0.1-1.2); Monocytes Percent Auto 11.3 % (2-11); Neutrophils Absolute Auto 3.8 x10*3/uL (2.0-8.3); Neutrophils Percent Auto 60.3 % (45-73); Platelet Count 299 X10*3/uL (160-400); Red Blood Count 4.87 X10*6/uL (4.20-5.50); Red Cell Distribution Width 13.5 % (11.0-16.0); White Blood Count 6.2 X10*3/uL (4.8-10.8)
[2023-11-26 08:34] LABS: Estimated Average Glucose 108 mg/dL; Hemoglobin A1c % 5.4 % (<6.0)
[2023-11-26 08:51] LABS: Alanine Aminotransferase 19 U/L (0-31); Albumin Level 4.4 g/dL (3.5-5.0); Alkaline Phosphatase 73 U/L (39-117); Anion Gap 15 (12-20); Aspartate Amino Transferase 18 U/L (5-31); Bilirubin Total 0.8 mg/dL (0.0-1.0); Blood Urea Nitrogen 18 mg/dL (9-16); Calcium 9.9 mg/dL (8.4-10.2); Carbon Dioxide 28 mmol/L (22-29); Chloride 103 mmol/L (96-108); Cholesterol 226 mg/dL (<200); Estimated Glomerular Filt Rate > 60; Glucose Random 102 mg/dL (60-115); HDL Cholesterol 83 mg/dL (>40); LDL Cholesterol Calculated 131 mg/dL (<100); Magnesium 2.2 mg/dL (1.6-2.6); Potassium 4.4 mmol/L (3.3-5.1); Sodium 142 mmol/L (135-145); Total Protein 7.3 g/dL (6.5-8.0); Triglycerides 62 mg/dL (<150)
[2023-11-26 09:08] LABS: TSH reflex Free T4 0.24 uIU/mL (0.32-4.0)
[2023-11-26 09:16] LABS: Appearance Urine Clear; Color Urine Yellow; Glucose Urine UA Negative (Negative); Leukocyte Esterase Urine Trace (Negative); Nitrite Urine Negative (Negative); PH 5.5 (5.0-9.0); Specific Gravity - Urine 1.025 (1.005-1.025); UMIC TRIGGER UACC YES; Urine Blood Trace (Negative); Urine Ketones 40 mg/dL (Negative); Urine Protein Negative (Neg-Trace)
[2023-11-26 09:22] LABS: Bacteria Urine Trace (None Seen); Hyaline Casts Urine 0-2 /LPF (0-2); WBC Urine 0-5 /HPF (0-5)
[2023-11-26 09:58] LABS: Free T4 (Free Thyroxine) 1.34 ng/dL (0.71-1.85)
== END 2023-11-26 07:45 | disposition home or self-care (01) ==
LOC: HO.LAB 07:44
PROVIDERS: PCP Internal Medicine; Visit Provider Internal Medicine
DX: R25.2 Cramp and spasm (principal); I10 Essential (primary) hypertension; E03.9 Hypothyroidism, unspecified; E78.00 Pure hypercholesterolemia, unspecified; R39.15 Urgency of urination
CPT/HCPCS: 36415; 80053; 80061; 81001; 81003; 83036; 83735; 84439; 84443; 85025

== ENCOUNTER 2023-12-05 08:34 | Outpatient (REF) | payer MEDICARE, SELFPAY | END 2023-12-05 08:35 | disposition home or self-care (01) | LOC: HO.MAMMO 08:34 | PROVIDERS: PCP Internal Medicine; Visit Provider Internal Medicine | DX: Z12.31 Encounter for screening mammogram for malignant neoplasm of breast (principal) | CPT/HCPCS: 77063; 77067 ==

== ENCOUNTER → 2023-12-05 08:45 | Outpatient (BNV) | payer MEDICARE, SELFPAY | PROVIDERS: PCP Internal Medicine; Visit Provider Radiology Diagnostic Radiology | DX: Z12.31 Encounter for screening mammogram for malignant neoplasm of breast (principal) | CPT/HCPCS: 77063; 77067 ==

== ENCOUNTER 2023-12-07 08:58 | Outpatient (REF) | payer MEDICARE, SELFPAY ==
--- NOTE | ~2023-12-07 | CT_ITS ---
EXAMINATION: CT ABDOMEN AND PELVIS WITHOUT AND WITH CONTRAST CLINICAL INFORMATION: Hematuria COMPARISON: 07/18/2022 TECHNIQUE: Multidetector volumetric imaging was performed of the abdomen and pelvis without and after the IV administration of 85 mL of Omnipaque 350 intravenous contrast. Sagittal and coronal reformatted images were obtained on the technologist's workstation. This CT examination was performed using dose optimization techniques as appropriate, variously including the following: *Automated exposure control *Adjustment of mA and/or kV according to patient size (this includes techniques or standardized protocols for targeted exams where dose is matched to indication/reason for exam; i.e. extremities or head) *Use of iterative reconstruction technique DLP: 1149 mGy-cm FINDINGS: LUNG BASES: The visualized lung bases are unremarkable. LIVER, GALLBLADDER, AND BILIARY TREE: Liver is of low attenuation due to hepatic steatosis without intrahepatic masses or ductal dilatation. The gallbladder is unremarkable with no evidence of radiopaque gallstones, gallbladder wall thickening, or obvious pericholecystic inflammatory changes. PANCREAS: Unremarkable SPLEEN: Unremarkable ADRENAL GLANDS: Unremarkable KIDNEYS AND URETERS: There is 2 mm stone in the lower pole of left kidney there is no evidence of hydronephrosis or nephrolithiasis on the right ureters are nondilated BLADDER: Calcifications seen in the base of urinary bladder. GASTROINTESTINAL TRACT: There are changes of colonic diverticulosis without diverticulitis in the sigmoid colon. Appendix not seen. Mesentery unremarkable. ABDOMINAL WALL: There is large fat-containing umbilical hernia. LYMPH NODES: Normal VASCULAR: There are atherosclerotic calcifications of abdominal aorta without evidence of dilatation There is a right inguinal hernia containing loops of bowel and fat. PELVIC VISCERA: Unremarkable OSSEOUS STRUCTURES: There are degenerative changes at the level of L5-S1 CT/CT abdomen pelvis wo/w IV con IMPRESSION: Nephrolithiasis with nonobstructing 0.2 cm stone seen in the lower pole of left kidney and calcifications in the base of urinary bladder. Hepatic steatosis. Right inguinal hernia with bowel loops and fat-containing umbilical hernia. Fleischner guidelines were followed.
[2023-12-07] MEDS: iohexoL 350 MG/ML 100 ML INFUS..BTL 85 ML IV (09:50)
== END 2023-12-07 08:59 | disposition home or self-care (01) ==
LOC: HO.CT 08:58
PROVIDERS: PCP Internal Medicine; Visit Provider Internal Medicine
DX: R31.9 Hematuria, unspecified (principal)
CPT/HCPCS: 74178; Q9967

== ENCOUNTER 2023-12-12 15:40 | Outpatient (REF) | payer MEDICARE, SELFPAY ==
[2023-12-12 16:56] LABS: Appearance Urine Clear; Color Urine Yellow; Glucose Urine UA Negative (Negative); Leukocyte Esterase Urine Negative (Negative); Nitrite Urine Negative (Negative); Specific Gravity - Urine <= 1.005 (1.005-1.025); Urine Blood Negative (Negative); Urine Ketones Negative (Negative); Urine Protein Negative (Neg-Trace)
== END 2023-12-12 15:41 | disposition home or self-care (01) ==
LOC: HO.LAB 15:40
PROVIDERS: PCP Internal Medicine; Visit Provider Internal Medicine
DX: R31.9 Hematuria, unspecified (principal)
CPT/HCPCS: 81003; 87086

== ENCOUNTER 2024-01-22 09:57 | Outpatient (AMB) | payer MEDICARE, SELFPAY ==
--- NOTE | 2024-01-22 10:14 | MHC.OFFVIS ---
Vital Signs 01/22/24 10:18 Height 5 ft 3.5 in Weight 221 lb BMI 38.5 BP 123/73 Blood Pressure Location Rt brachial Position Sitting Pulse 72 Intake Visit Reasons: Inguinal Hernia Intake Note: Patient is seen in office for evaluation and treatment of an inguinal hernia. Pt c/o: reports bulge, reports no change to bowel habits, right groin. 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 Accompanied by: Self / Same As Patient Allergies levofloxacin [From Levaquin] Allergy (Severe, Verified 01/22/24 10:20) RED SKIN/BURNING SENSATION, rash metoprolol [METOPROLOL] Allergy (Severe, Verified 01/22/24 10:20) severe muscle weakness pineapple [PINEAPPLE] Allergy (Severe, Verified 01/22/24 10:20) TONGUE SWELLING propranolol [PROPRANOLOL] Allergy (Intermediate, Verified 01/22/24 10:20) DYSPNEA/DEPRESSION, depression Sulfa (Sulfonamide Antibiotics) Allergy (Intermediate, Verified 01/22/24 10:20) RASH lisinopril Allergy (Unknown, Verified 01/22/24 10:20) cough venom-wasp Allergy (Unknown, Verified 01/22/24 10:20) severe local reaction Flexeril Allergy (Unknown, Uncoded 01/22/24 10:20) nausea Medication List - Last Reconciled 01/22/24 by Donnie Melo MD aspirin 81 mg PO DAILY cholecalciferol (vitamin D3) 25 mcg PO DAILY diltiazem HCl CD 180 mg PO DAILY levothyroxine 100 mcg PO MOTUTHFRSA@0600 levothyroxine 150 mcg PO SUWE@0600 losartan 100 mg PO DAILY magnesium 250 mg PO DAILY multivitamin (Multiple Vitamins tablet) 1 tab PO DAILY HPI Comments Details: 68-year-old female patient found to have microscopic hematuria underwent a workup with CT abdomen and pelvis. On the CT, an incidental finding included umbilical hernia and right inguinal hernia. She denied any previous symptoms of inguinal hernias but was aware of her umbilical hernia. She is now able to feel a hernia on the right groin but denies any significant pain, nausea, vomiting, fever or chills. She does occasionally have constipation but denies bloody stool. She presents today to discuss her options for management of the hernia. FORMERLY [facility], [facility] Medical History Obesity (BMI 35.0-39.9 without comorbidity) Dizziness GERD (gastroesophageal reflux disease) Diverticulitis HTN (hypertension) PVCs (premature ventricular contractions) Surgical History Hx of tonsillectomy History of ear surgery History of bladder surgery H/O mastoidectomy H/O esophagogastroduodenoscopy Social History Household Members: Spouse Housing: House Alcohol intake: current Alcohol intake frequency: 0-2 drinks per day Patient Tobacco Use Status: Never used Tobacco service: No Review of Systems Const All systems reviewed & are unremarkable except as noted in HPI and below Physical Exam Vital Signs: Last Vital Signs Pulse 72 01/22/24 10:18 BP 123/73 01/22/24 10:18 BMI result Body Mass Index 38.5 Const General: cooperative and no acute distress Nutritional Appearance: well nourished Orientation/consciousness: patient oriented x3 Limitations: no limitations HEENT Head: Yes normocephalic and Yes atraumatic Ears: hearing grossly normal bilaterally Resp Effort & Inspection: normal respiratory effort, no audible wheezes, no cough and no respiratory distress Cardio Jugular venous distension: no JVD GI Other: Palpable umbilical hernia, reducible in the supine position. Hernia defect proximally 2 cm diameter. Palpable right inguinal hernia, reducible in the supine position. No tenderness or overlying skin changes. Inspection: Yes normal to inspection Palpation (GI): Soft to palpation, nontender, no guarding and not rigid Skin Other: Warm, dry, no rash Neuro General: patient oriented x3 Extrem General: Yes no clubbing, cyanosis or edema Assessment & Plan Assessment & Plan (1) Umbilical hernia: Code(s): K42.9 - Umbilical hernia without obstruction or gangrene Category: Medical Qualifiers: Obstruction and gangrene presence: without obstruction or gangrene Qualified Code(s): K42.9 - Umbilical hernia without obstruction or gangrene (2) Right inguinal hernia: Code(s): K40.90 - Unilateral inguinal hernia, without obstruction or gangrene, not specified as recurrent Category: Medical Plan 68-year-old female patient presenting with a reducible umbilical and right inguinal hernia, confirmed on CT abdomen and pelvis. Patient is currently asymptomatic from both hernias. The hernias can safely be watched for now with a elective repair at her earliest convenience. I reviewed the procedure, risks and alternatives, and she consents to the repair of right inguinal hernia and umbilical hernia with mesh. She will call when she is ready to schedule the surgery. Coding Level of Care Code New Pt Level 4 (61293) Diagnoses Umbilical hernia without obstruction and without gangrene K42.9 Obstruction and gangrene presence: without obstruction or gangrene Right inguinal hernia K40.90
[2024-01-22 10:18] VITALS: BP 123/73; PULSE 72; BMI 38.5
== END 2024-01-22 10:34 | disposition home or self-care (01) ==
PROVIDERS: PCP Internal Medicine; Referring Provider Internal Medicine; Visit Provider Surgery
DX: K42.9 Umbilical hernia without obstruction or gangrene (principal); K40.90 Unilateral inguinal hernia, without obstruction or gangrene, not specified as recurrent
CPT/HCPCS: 99204

== ENCOUNTER → 2024-01-22 09:57 | Outpatient (BNVA) | payer MEDICARE, SELFPAY | PROVIDERS: PCP Internal Medicine; Referring Provider Internal Medicine; Visit Provider Surgery | DX: K40.90 Unilateral inguinal hernia, without obstruction or gangrene, not specified as recurrent (principal); K42.9 Umbilical hernia without obstruction or gangrene | CPT/HCPCS: 99202 ==

== ENCOUNTER 2024-03-11 14:07 | Outpatient (AMB) | payer MEDICARE, SELFPAY ==
[2024-03-11 14:15] VITALS: BP 120/72; PULSE 72; BMI 39.3
--- NOTE | 2024-03-11 14:15 | A.OFFVIS_ITS ---
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 Accompanied by: Self / Same As Patient Allergies levofloxacin [From Levaquin] Allergy (Severe, Verified 01/22/24 10:20) RED SKIN/BURNING SENSATION, rash metoprolol [METOPROLOL] Allergy (Severe, Verified 01/22/24 10:20) severe muscle weakness pineapple [PINEAPPLE] Allergy (Severe, Verified 01/22/24 10:20) TONGUE SWELLING propranolol [PROPRANOLOL] Allergy (Intermediate, Verified 01/22/24 10:20) DYSPNEA/DEPRESSION, depression Sulfa (Sulfonamide Antibiotics) Allergy (Intermediate, Verified 01/22/24 10:20) RASH lisinopril Allergy (Unknown, Verified 01/22/24 10:20) cough venom-wasp Allergy (Unknown, Verified 01/22/24 10:20) severe local reaction Flexeril Allergy (Unknown, Uncoded 01/22/24 10:20) nausea Medication List - Last Reconciled 03/11/24 by Pj Yarbrough MD cholecalciferol (vitamin D3) 25 mcg PO DAILY diltiazem HCl CD 180 mg PO DAILY levothyroxine 100 mcg PO MOTUTHFRSA@0600 levothyroxine 150 mcg PO SUWE@0600 magnesium 400 mg PO DAILY multivitamin (Multiple Vitamins tablet) 1 tab PO DAILY olmesartan 40 mg PO DAILY HPI Comments Details: Eunice comes for follow-up. Recently incidentally was noted to have right inguinal as well as umbilical hernia. She is scheduled to undergo elective repair of the same. Last year she had elevated blood pressure related to job related stress and her losartan was switch to olmesartan. She had 2 episodes of lightheadedness but this has not resolved has increasing her fluid intake. Blood pressures been well controlled. She occasionally has symptoms of skipped heartbeats but these are much significantly improved at this point time. She says she exercise and walks every where has no exertional chest pain or shortness of breath. She denies any heart failure symptoms. No lightheadedness, syncope since increasing her fluid intake [facility] Medical History (Updated 03/11/24 @ 14:36 by Pj Yarbrough MD) HTN (hypertension) Obesity (BMI 35.0-39.9 without comorbidity) Dizziness GERD (gastroesophageal reflux disease) Diverticulitis PVCs (premature ventricular contractions) Surgical History Hx of tonsillectomy History of ear surgery History of bladder surgery H/O mastoidectomy H/O esophagogastroduodenoscopy Social History Household Members: Spouse Housing: House Alcohol intake: current Alcohol intake frequency: 0-2 drinks per day Patient Tobacco Use Status: Never used Tobacco service: No Review of Systems Const Denies chills, Denies fatigue, Denies fever(s), Denies frequent falls, Denies weakness, Denies weight gain and Denies weight loss ENT Denies dizziness Card Denies chest pain, Denies leg edema, Denies lightheadedness, Denies palpitations, Denies dyspnea and Denies dyspnea on exertion Resp Denies cough, Denies dyspnea and Denies dyspnea on exertion GI Denies hematochezia Musc Denies abnormal gait, Denies muscle weakness, Denies numbness, Denies radiating pain into limb and Denies tingling Neuro Denies abnormal gait, Denies dizziness, Denies frequent falls, Denies numbness, Denies tingling and Denies weakness Endo Denies fatigue and Denies palpitations Physical Exam Vital Signs: Last Vital Signs Pulse 72 03/11/24 14:15 BP 120/72 03/11/24 14:15 BMI result Body Mass Index 39.3 Const General: cooperative, comfortable, no acute distress, alert, awake, Physically active and well groomed Nutritional Appearance: obese Orientation/consciousness: patient oriented x3 Limitations: no limitations Neck Neck: Yes trachea midline, Yes supple and Yes no JVD Resp Effort & Inspection: normal respiratory effort Auscultation: clear to auscultation bilaterally Cardio Jugular venous distension: no JVD Palpation: normal PMI Rate: regular rate Rhythm: regular rhythm Heart sounds: S1 normal heart sound present, S2 normal heart sound present, no click, no gallops, no murmurs and no rubs GI Auscultation: normal bowel sounds Skin General skin exam: no rashes or lesions noted Neuro General: patient oriented x3 and no focal motor deficits Extrem General: Yes no clubbing, cyanosis or edema Office Procedures EKG Details: EKG shows normal sinus rhythm with nonspecific ST T wave changes [id number], Complete Assessment & Plan Assessment & Plan (1) Preoperative cardiovascular examination: Code(s): Z01.810 - Encounter for preprocedural cardiovascular examination Plan: Preoperative cardiovascular risk stratification for inguinal as well as umbilical hernia under general anesthesia. Low to intermediate risk surgery. She has no current symptoms at good workload. No further testing is required. She is optimized to undergo surgery with low risk for perioperative cardiovascular morbidity mortality. (2) PVCs (premature ventricular contractions): Code(s): I49.3 - Ventricular premature depolarization Category: Medical Plan: PVCs still present without any obvious significant symptoms with much reduced burden for her clinically. No change in therapy is recommended. Continue current therapy. Importance of avoidance of stimulants was discussed. Stress mitigation strategies were discussed. (3) HTN (hypertension): Code(s): I10 - Essential (primary) hypertension Category: Medical Plan: Hypertension which is currently well optimized on current therapy with olmesartan and Cardizem. Continue the same. Importance of good blood pressure control was discussed. Target goal blood pressure less than 130/84 which is currently well optimized. Advised to maintain adequate hydration. Avoidance of salt loading was discussed. Encouraged to continue to participate in regular physical activity as well as weight loss program. Will follow up in the clinic if need be. Thank you for allowing me to partake in her care Coding Level of Care Code Est Pt Level 4 (28840) Diagnoses Preoperative cardiovascular examination Z01.810 PVCs (premature ventricular contractions) I49.3 HTN (hypertension) I10 CPT Codes EKG - CPT: 98055-[id number], Complete ([id number])
== END 2024-03-11 15:53 | disposition home or self-care (01) ==
PROVIDERS: PCP Internal Medicine; Visit Provider Internal Medicine Cardiovascular Disease
DX: I49.3 Ventricular premature depolarization (principal); I10 Essential (primary) hypertension; Z01.810 Encounter for preprocedural cardiovascular examination
CPT/HCPCS: 93010; 99214

== ENCOUNTER → 2024-03-11 14:07 | Outpatient (BNVA) | payer MEDICARE, SELFPAY | PROVIDERS: PCP Internal Medicine; Visit Provider Internal Medicine Cardiovascular Disease | DX: Z01.810 Encounter for preprocedural cardiovascular examination (principal); I49.3 Ventricular premature depolarization; I10 Essential (primary) hypertension | CPT/HCPCS: 93005; 99212 ==

== ENCOUNTER 2024-03-26 07:25 | Day surgery (SDC) | payer MEDICARE, SELFPAY ==
[2024-03-19 14:39] VITALS: BMI 38.5
[2024-03-26] VITALS (10 sets, daily range): BP systolic 117–134; BP diastolic 62–71; PULSE 60–89; RESP 10–16; TEMP 36.2–36.6; O2SAT 96–98
[2024-03-26] MEDS: Lactated Ringers 1,000 ML 100 ML IVCONT (08:03)
[2024-03-26] MEDS: Scopolamine 1.5 MG PATCH.TD.3 TRANSDERMA (08:03)
--- NOTE | 2024-03-26 08:35 | P.CONAN_ITS ---
Documented by User: Zulay Torres NP 03/19/24 14:53 HPI - Anesthesia Eval Consult details Narrative: 69yo F for Right Hernia Inguinal with mesh, Hernia Umbilical Reducible with mesh Cardiac optimized PONV PMFSH Active Problems Active Problems: All Active Problems Right inguinal hernia (Acute) Umbilical hernia (Acute) HTN (hypertension) (Acute) PVCs (premature ventricular contractions) (Acute) Past Medical History Medical History (Updated 03/19/24 @ 14:37 by Taty Sanchez RN) Bronchitis [place] (hard of hearing) PONV (postoperative nausea and vomiting) Hypothyroid Obesity (BMI 35.0-39.9 without comorbidity) Dizziness GERD (gastroesophageal reflux disease) Diverticulitis HTN (hypertension) PVCs (premature ventricular contractions) Surgical History Surgical History (Updated 03/19/24 @ 14:35 by Taty Sanchez RN) Hx of blepharoplasty H/O colonoscopy Hx of tonsillectomy History of bladder surgery H/O mastoidectomy H/O esophagogastroduodenoscopy History of Problems with Anesthesia: No Social History Social History Household Members: Spouse Housing: House Are you a primary career development coordinator/teacher to a significant other at home: No Do you presently have visiting nurse or other home services: No Alcohol intake: current Alcohol intake frequency: 0-2 drinks per day Patient Tobacco Use Status: Former Tobacco user Tobacco use type: Cigarette Years Smoked: 10 Use of substances other than those prescribed or required for medical reasons: No Have you been hit, kicked, punched, or otherwise hurt by someone within the past year? If so, by whom?: No Are you DNR?: No Advance Directives: Yes Advance Directives Information Provided: Yes Advance Directives on File: Yes Advance Directives Date on File: 07/05/23 Recently lost weight without trying: No Eating poorly because of decreased appetite: No Nutrition Risks: No Nutritional Risk Poor oral hygiene: No (two dental crowns) service: No Meds Allergies Allergy/AdvReac Type Severity Reaction Status Date / Time levofloxacin [From Levaquin] Allergy Severe RED Verified 01/22/24 10:20 SKIN/BURNING SENSATION, rash metoprolol [METOPROLOL] Allergy Severe severe Verified 01/22/24 10:20 muscle weakness pineapple [PINEAPPLE] Allergy Severe TONGUE Verified 01/22/24 10:20 SWELLING venom-wasp Allergy Severe severe Verified 03/19/24 09:15 local reaction cyclobenzaprine Allergy Intermediate Nausea Verified 03/19/24 09:14 [From Flexeril] propranolol [PROPRANOLOL] Allergy Intermediate DYSPNEA/DEPRESSION, Verified 01/22/24 10:20 depression Sulfa (Sulfonamide Allergy Intermediate RASH Verified 01/22/24 10:20 Antibiotics) lisinopril AdvReac Intermediate cough Verified 03/19/24 09:15 Home Medications ?Medication ?Instructions ?Recorded ?Confirmed ?Last Taken ?Type cholecalciferol (vitamin D3) 25 25 mcg PO QPM 02/23/22 03/19/24 Unknown History mcg (1,000 unit) capsule diltiazem HCl 180 mg 180 mg PO QPM 02/23/22 03/19/24 Unknown History capsule,extended release 24 hr levothyroxine 100 mcg tablet 150 mcg PO SUWE@0600 02/23/22 03/19/24 Unknown History multivitamin (Multiple Vitamins 1 tab PO QPM 02/23/22 03/19/24 Unknown History tablet) levothyroxine 100 mcg tablet 100 mcg PO MOTUTHFRSA@0600 07/03/23 03/19/24 Unkn own History olmesartan 40 mg tablet 40 mg PO QPM 03/11/24 03/19/24 Unknown History albuterol sulfate 90 mcg/actuation 2 puff inhalation Q4-6H PRN 03/19/24 03/19/24 Unknown History aerosol inhaler Shortness Of Breath Or Wheezing magnesium oxide 400 mg PO QPM 03/19/24 03/19/24 Unknown History Exam Height,Weight and Vital Signs: Height 5 ft 3.5 in Weight 100.244 kg Pertinent Lab Results Pertinent Lab Results: Laboratory Tests 11/26/23 08:01 WBC 6.2 Hgb 15.0 Hct 45.0 Plt Count 299 Sodium 142 Potassium 4.4 Chloride 103 Carbon Dioxide 28 BUN 18 H Creatinine 0.83 Narrative Narrative: EKG 02/2024 normal sinus rhythm with nonspecific ST T wave changes ECHO 2022 Conclusions: - Normal left ventricular size and systolic function. There is mildly increased left ventricular wall thickness. The visually estimated ejection fraction is between 60-65%. - Normal right ventricular cavity size and systolic function. - The left atrium is normal in size. Assessment and Plan Assessment Anesthesia Assessment: Chart Reviewed Final Anesthetic Review History of Problems with Anesthesia: No Documented by User: Radha Smyth DO 03/26/24 08:40 HPI - Anesthesia Eval Consult details Narrative: 69yo F for Right Hernia Inguinal with mesh, Hernia Umbilical Reducible with mesh Cardiac optimized PONV - scop patch in place PMFSH Past Medical History Medical History (Updated 03/19/24 @ 14:37 by Taty Sanchez RN) Bronchitis [place] (hard of hearing) PONV (postoperative nausea and vomiting) Hypothyroid Obesity (BMI 35.0-39.9 without comorbidity) Dizziness GERD (gastroesophageal reflux disease) Diverticulitis HTN (hypertension) PVCs (premature ventricular contractions) Family History Family history of problems with anesthesia: No Surgical History Surgical History (Updated 03/19/24 @ 14:35 by Taty Sanchez RN) Hx of blepharoplasty H/O colonoscopy Hx of tonsillectomy History of bladder surgery H/O mastoidectomy H/O esophagogastroduodenoscopy History of Problems with Anesthesia: No Social History Social History Household Members: Spouse Housing: House Are you a primary career development coordinator/teacher to a significant other at home: No Do you presently have visiting nurse or other home services: No Alcohol intake: current Alcohol intake frequency: 0-2 drinks per day Patient Tobacco Use Status: Former Tobacco user Tobacco use type: Cigarette Years Smoked: 10 Use of substances other than those prescribed or required for medical reasons: No Have you been hit, kicked, punched, or otherwise hurt by someone within the past year? If so, by whom?: No Are you DNR?: No Advance Directives: Yes Advance Directives Information Provided: Yes Advance Directives on File: Yes Advance Directives Date on File: 07/05/23 Recently lost weight without trying: No Eating poorly because of decreased appetite: No Nutrition Risks: No Nutritional Risk Poor oral hygiene: No (two dental crowns) service: No Meds Allergies Allergy/AdvReac Type Severity Reaction Status Date / Time levofloxacin [From Levaquin] Allergy Severe RED Verified 01/22/24 10:20 SKIN/BURNING SENSATION, rash metoprolol [METOPROLOL] Allergy Severe severe Verified 01/22/24 10:20 muscle weakness pineapple [PINEAPPLE] Allergy Severe TONGUE Verified 01/22/24 10:20 SWELLING venom-wasp Allergy Severe severe Verified 03/19/24 09:15 local reaction cyclobenzaprine Allergy Intermediate Nausea Verified 03/19/24 09:14 [From Flexeril] propranolol [PROPRANOLOL] Allergy Intermediate DYSPNEA/DEPRESSION, Verified 01/22/24 10:20 depression Sulfa (Sulfonamide Allergy Intermediate RASH Verified 01/22/24 10:20 Antibiotics) lisinopril AdvReac Intermediate cough Verified 03/19/24 09:15 Home Medications ?Medication ?Instructions ?Recorded ?Confirmed ?Last Taken ?Type cholecalciferol (vitamin D3) 25 25 mcg PO QPM 02/23/22 03/19/24 Unknown History mcg (1,000 unit) capsule diltiazem HCl 180 mg 180 mg PO QPM 02/23/22 03/19/24 Unknown History capsule,extended release 24 hr levothyroxine 100 mcg tablet 150 mcg PO SUWE@0600 02/23/22 03/19/24 Unknown History multivitamin (Multiple Vitamins 1 tab PO QPM 02/23/22 03/19/24 Unknown History tablet) levothyroxine 100 mcg tablet 100 mcg PO MOTUTHFRSA@0600 07/03/23 03/19/24 Unknown History olmesartan 40 mg tablet 40 mg PO QPM 03/11/24 03/19/24 Unknown History albuterol sulfate 90 mcg/actuation 2 puff inhalation Q4-6H PRN 03/19/24 03/19/24 Unknown History aerosol inhaler Shortness Of Breath Or Wheezing magnesium oxide 400 mg PO QPM 03/19/24 03/19/24 Unknown History Exam Exam Date and Time: 03/26/24 0820 Airway Mallampati Class: II TM Dist: <=3cm Neck ROM: Full Loose/Missing/Broken Teeth: No (patient denies any loose or broken teeth) Heart: S1S2 Lungs: CTAB Assessment and Plan Assessment Anesthesia Assessment: Anesthesia Plan Discussed and Chart Reviewed Final Anesthetic Review Family History of Problems with Anesthesia: No History of Problems with Anesthesia: No NPO: Yes ASA Class: II Final Preanesthetic Review: No Changes in Pt Med Stat, Consent Obtained/Reviewed and Anes Risks/Benef Reviewed Patient Risk: Low Procedure Risk: Low Anesthetic Plan Anesthetic Plan: GA and Agree w/ Assess. and Plan Disposition: Standard PACU
--- NOTE | 2024-03-26 08:47 | MHC.SHP ---
Pre-Procedural Eval Section A - 24 Hr Update-Section A only Date of Service: 03/26/24 The patient is an INPATIENT: No Changes since office visit: Yes Patient answered all questions; No Cold of Flu in the past 2 weeks, No New Medical Problems and No Changes in Medication The patient has been examined within 24 hours of the surgical procedure. The History & Physical has been completed within 30 days and I have reviewed it.: No Section B - Complete if H&P > 30 days Chief Complaint: Unilateral inguinal hernia,Umbilical hernia Details of Present Illness: Changed since her last visit Relevant Family History (Specify if Yes): No Relevant Social History: None Present Medications: see Short Stay Collaborative assessment Medical History: No relevant PMH History of Previous Operations: No relevant previous surgery Allergies: Allergies Allergy/AdvReac Type Severity Reaction Status Date / Time levofloxacin [From Levaquin] Allergy Severe RED Verified 01/22/24 10:20 SKIN/BURNING SENSATION, rash metoprolol [METOPROLOL] Allergy Severe severe Verified 01/22/24 10:20 muscle weakness pineapple [PINEAPPLE] Allergy Severe TONGUE Verified 01/22/24 10:20 SWELLING venom-wasp Allergy Severe severe Verified 03/19/24 09:15 local reaction cyclobenzaprine Allergy Intermediate Nausea Verified 03/19/24 09:14 [From Flexeril] propranolol [PROPRANOLOL] Allergy Intermediate DYSPNEA/DEPRESSION, Verified 01/22/24 10:20 depression Sulfa (Sulfonamide Allergy Intermediate RASH Verified 01/22/24 10:20 Antibiotics) lisinopril AdvReac Intermediate cough Verified 03/19/24 09:15 Review of Systems Sugical H&P ROS: Negative: Constitution, Respiratory, Gastrointestinal and Integumentary Exam Surgical H&P Exam: Normal: Abdomen (Soft and nondistended) Plan Diagnosis/Plan: Unchanged I have reviewed the history and physical and performed a pertinent physical examination on my patient. No changes have occurred unless specified. Time Spent With Patient Time: Total time managing care of this patient today ____ minutes.
--- NOTE | 2024-03-26 11:06 | W.PM.OPN ---
Operative Note Operative Note Date of Service: 03/26/24 Narrative: Preoperative diagnosis: Right inguinal hernia, umbilical hernia, reducible Postoperative diagnosis: Same Procedure: Repair of right inguinal hernia and umbilical hernia with mesh Surgeon: Donnie Melo MD Respiratory Medicine Physician: Suzette Holden PA-C Anesthesia: General LMA Indications for procedure: 69-year-old female patient presenting with pain in the right lower quadrant abdomen and umbilicus found on CT to have a inguinal hernia and umbilical hernia. Operative findings: Right inguinal hernia, reducible, umbilical hernia with a defect measuring approximately 2 cm in diameter. Specimen: None Estimated blood loss: 2 mL Complications: None Procedure details: Patient was brought to the OR and placed in a supine position. After administering general anesthesia the patient's abdomen was prepped with ChloraPrep and draped in a sterile fashion. A surgical time-out was called the consent confirmed. Patient received preoperative antibiotics and Venodyne boots were in place. Local anesthesia was infiltrated over the right inguinal ligament. Incision was then made with a scalpel carried down past Blossom's fascia up to the external oblique aponeurosis. Local was instilled below the external oblique aponeurosis. This was incised with a scalpel widened with the Metzenbaum scissors. The round ligament was then dissected free from the surrounding inguinal canal. A large indirect right inguinal hernia was identified. The round ligament was divided and ligated with 2-0 Polysorb tie. The indirect hernia was then dissected free from the surrounding inguinal canal. The sac was then reduced a preperitoneal space dissected using an open Ray-Karley sponge. A medium PHS mesh was then obtained. The circular underlay was then deployed within the hernia sac at the internal ring. The overlay was then secured to the pubic tubercle, conjoined tendon, and shelving edge of the inguinal ligament using 0 Polysorb sutures. The remaining mesh was placed below the external oblique aponeurosis laterally. Wounds were then irrigated with saline solution and suctioned dry. External oblique aponeurosis was then closed using a running 2-0 Polysorb suture. 6 mL of Zenrelef was then instilled below the external oblique aponeurosis. Blossom's fascia and dermis were then reapproximated using interrupted 3-0 Polysorb sutures. Skin was closed using a running subcuticular 4-0 Polysorb suture. Attention was then directed to the umbilical hernia. A curvilinear incision was made above the umbilicus in a transverse fashion. This was carried out through subcutaneous tissue up to the hernia sac. The hernia sac was then dissected down to the fascial edge. The hernia was dissected circumferentially behind the umbilicus. Hernia sac was then dissected off the umbilical skin using electrocautery. The sac was then further dissected circumferentially at the fascial edge. The sac was reduced and a preperitoneal space created. A 4.6 cm round Ventralex mesh was then obtained. This was deployed within the preperitoneal space and secured in 4 quadrants using a 0 Tycron suture. Fascia was then closed over the mesh using [id number] 0 Tycron sutures. Prior to complete closure of the fascia proximally 3 mL of Zenrelef was infiltrated below the fascia. Fascia was then completely closed and the abdomen irrigated with saline solution. Subcutaneous tissue and dermis were then reapproximated using interrupted 3-0 Polysorb sutures. Skin was closed using a running subcuticular 4-0 Polysorb suture. Sterile dressings consisting of Steri-Strips, 4 x 4 gauze and Tegaderm were then applied. The patient tolerated the procedure well. Sponge, instrument, and needle counts reported as correct. The patient was transferred to PACU in stable condition.
[2024-03-26] MEDS: Acetaminophen 325 MG TABLET 650 MG PO (11:51)
[2024-03-26] MEDS: fentaNYL citrate/PF 100 MCG/2 ML VIAL 50 MCG IVPUSH (11:52)
[2024-03-26] MEDS: oxyCODONE HCl Immed Release 5 MG TABLET PO (12:21)
== END 2024-03-26 12:48 | disposition home or self-care (01) ==
PROVIDERS: PCP Internal Medicine; Visit Provider Surgery
PROC: (CPT 49505; principal; 2024-03-26 09:00)
PROC: (CPT 49505; 2024-03-26 09:00)
DX: K40.90 Unilateral inguinal hernia, without obstruction or gangrene, not specified as recurrent (principal); K42.9 Umbilical hernia without obstruction or gangrene; K21.9 Gastro-esophageal reflux disease without esophagitis; Z87.19 Personal history of other diseases of the digestive system; I10 Essential (primary) hypertension; I49.3 Ventricular premature depolarization; E66.9 Obesity, unspecified; Z68.38 Body mass index [BMI] 38.0-38.9, adult; Z79.82 Long term (current) use of aspirin; Z79.899 Other long term (current) drug therapy; Z88.1 Allergy status to other antibiotic agents; Z88.2 Allergy status to sulfonamides; Z88.8 Allergy status to other drugs, medicaments and biological substances; Z98.890 Other specified postprocedural states; Z87.891 Personal history of nicotine dependence
CPT/HCPCS: 49505; 49591; C1781; C9088; J0690; J1100; J1885; J2250; J2405; J2704; J2795; J3010

== ENCOUNTER → 2024-03-26 07:25 | Outpatient (BNV) | payer MEDICARE, SELFPAY | PROVIDERS: PCP Internal Medicine; Visit Provider Surgery | DX: K40.90 Unilateral inguinal hernia, without obstruction or gangrene, not specified as recurrent (principal); K42.9 Umbilical hernia without obstruction or gangrene | CPT/HCPCS: 49505; 49591 ==

== ENCOUNTER 2024-04-07 10:47 | Outpatient (AMB) | payer MEDICARE, SELFPAY ==
--- NOTE | 2024-04-07 10:53 | MHC.OFFVIS ---
Intake Visit Reasons: S/P umbilical and Rt inguinal hernia repair w/mesh Intake Note: Patient is seen in office for post op assessment post repair of right inguinal hernia and umbilical hernia with mesh. Pt c/o: reports no complaints pertaining to surgery. surgery: 03/26/24 Customer Trainer Required: No Accompanied by: Self / Same As Patient Allergies levofloxacin [From Levaquin] Allergy (Severe, Verified 04/07/24 10:56) RED SKIN/BURNING SENSATION, rash metoprolol [METOPROLOL] Allergy (Severe, Verified 04/07/24 10:56) severe muscle weakness pineapple [PINEAPPLE] Allergy (Severe, Verified 04/07/24 10:56) TONGUE SWELLING venom-wasp Allergy (Severe, Verified 04/07/24 10:56) severe local reaction cyclobenzaprine [From Flexeril] Allergy (Intermediate, Verified 04/07/24 10:56) Nausea propranolol [PROPRANOLOL] Allergy (Intermediate, Verified 04/07/24 10:56) DYSPNEA/DEPRESSION, depression Sulfa (Sulfonamide Antibiotics) Allergy (Intermediate, Verified 04/07/24 10:56) RASH lisinopril Adverse Reaction (Intermediate, Verified 04/07/24 10:56) cough HPI HPI S/P umbilical and Rt inguinal hernia repair w/mesh: Details: She had undergone repair of a right inguinal hernia and umbilical hernia with mesh with Dr. Melo last 03/26/2024. She had tolerated the procedure well. She currently denies significant complaints except for some incisional pain appropriate to her postop course. [facility] Medical History (Updated 03/19/24 @ 14:37 by Taty Sanchez RN) Bronchitis [place] (hard of hearing) PONV (postoperative nausea and vomiting) Hypothyroid Obesity (BMI 35.0-39.9 without comorbidity) Dizziness GERD (gastroesophageal reflux disease) Diverticulitis HTN (hypertension) PVCs (premature ventricular contractions) Surgical History (Updated 04/04/24 @ 12:15 by KEITH Clarek) History of hernia repair (03/26/24) Hx of blepharoplasty H/O colonoscopy Hx of tonsillectomy History of bladder surgery H/O mastoidectomy H/O esophagogastroduodenoscopy Social History Household Members: Spouse Housing: House Are you a primary director long term care to a significant other at home: No Do you presently have visiting nurse or other home services: No Alcohol intake: current Alcohol intake frequency: 0-2 drinks per day Patient Tobacco Use Status: Former Tobacco user Tobacco use type: Cigarette Years Smoked: 10 Advance Directives Date on File: 07/05/23 service: No Review of Systems Const Denies chills and Denies fever(s) Card Denies chest pain Resp Denies cough GI Denies vomiting Physical Exam Const General: comfortable and no acute distress Resp Effort & Inspection: normal respiratory effort GI Other: Incisions on the umbilicus as well as the right groin are healing well, repair sites appear intact, no evidence of infection Assessment & Plan Assessment & Plan (1) Right inguinal hernia: Code(s): K40.90 - Unilateral inguinal hernia, without obstruction or gangrene, not specified as recurrent Category: Medical Plan: Status post repair of umbilical hernia and right inguinal hernia with mesh. Both sites are healing well. The repair sites appeared to be intact. She was advised to avoid any lifting more than 20 lb for at least 2 more weeks. She can otherwise follow up with Dr. Melo on a p.r.n. basis. Coding Level of Care Code Global (39042) Diagnoses Right inguinal hernia K40.90
== END 2024-04-07 11:13 | disposition home or self-care (01) ==
PROVIDERS: PCP Internal Medicine; Visit Provider Surgery
DX: K40.90 Unilateral inguinal hernia, without obstruction or gangrene, not specified as recurrent (principal)
CPT/HCPCS: 99024

== ENCOUNTER → 2024-04-07 10:47 | Outpatient (BNVA) | payer MEDICARE, SELFPAY | PROVIDERS: PCP Internal Medicine; Visit Provider Surgery | DX: Z09 Encounter for follow-up examination after completed treatment for conditions other than malignant neoplasm (principal); Z87.19 Personal history of other diseases of the digestive system; Z98.890 Other specified postprocedural states | CPT/HCPCS: 99212 ==

== ENCOUNTER 2024-09-12 07:57 | Outpatient (AMB) | payer BC, SELFPAY ==
--- OUTSIDE RECORDS SUMMARY | 2024-09-12 08:01 | XMS_ITS | Patient Health Record ---
Author Organization [facility] Address [address] [place] [address] Care Team Providers Care Tennis Director Name Role Phone Ronan Flynn MD Primary Care Provider Unavaila Steve Taveras Jr ALLERGIES Allergen (clinical drug ingredient) Drug/Non Drug Allergy documented on EMR Reaction Allergy Type Onset Date Status propranolol Propranolol Unknown Drug Allergy Act eddie metoprolol Metoprolol Unknown Drug Allergy Activ e Sulfa Unknown Drug Allergy Active Levaquin Unknown Drug Allergy Active REASON FOR REFERRAL No Information MEDICATIONS Medication SIG (Take, Route, Frequency, Duration) Notes Start Date End Date Status Vitamin D3 25 MCG (1000 UT) 1 tablet Ora lly Once a day for 30 day(s) 10/06/2022 Active Multivitamin Adults - Orally Active Cartia XT 180 MG Oral for 30 A ctive dilTIAZem HCl ER Coated Beads 180 MG TAKE 1 CAPSULE BY MOUTH EVERY DAY Diagnosis Unavailable Oral for 90 Active Omeprazole 20 MG 1 capsule Orally Onc e a day for 30 days Active Calcium Active Levothyroxine Sodium 100/150mcg Active Losartan Potassium 50 MG 1 tablet Orally Once a day Active Vitamin D Active IMMUNIZATIONS Vaccine Route Administration Date Status Comme nts Influenza Unknown 05/07/2019 Administered Influenza Unknown 03/23/2022 Administered SOCIAL HISTORY Sex Assigned At : Social History Observation Description Sex Assigned At Unknown Alcohol Screen Question Answer Notes Did you have a drink contain ing alcohol in the past year? Yes How often did you have a dri nk containing alcohol in the past year? 2 to 4 times a month (2 points) How many drinks did you have on a typical day when you were drinking in the past year? 3 or 4 drinks (1 point) How often did you have 6 or more drinks on one occasion in the past year? Never (0 point) Points 3 Interpretation Positive PROBLEMS Problem Type ICD Code Onset Dates Problem Status W/U Status Risk SNOMED Code Notes Problem Colon cancer screening (Z12.11) Active confirmed 692436145 Problem Epigastric pain (R10.13) Active confirmed 91989491 Problem Diverticulosis of large intestine without perforation or abscess without bleeding (K57.30) Active confirmed Diverticul ar disease of colon (389738108) Problem Other dysphagia (R13.19) Active confirmed 11417214 Problem Dysphagia (R13.10) Active confirmed Dys phagia (08085773) Problem Diverticulitis (K57.92) Active confirmed 933366468 Problem Gastroesophageal reflux disease (K21.9) Active confirmed Gastroesophagea l reflux disease (438022313) Problem Gastroesophageal reflux disease without esophagitis (K21.9) Active confirmed [id number] PLAN OF TREATMENT Future Test Test Name Order Date COLONOSCOPY 10/11/2017 UPPER GI ENDOSCOPY 10/06/2022 COLONOSCOPY 10/06/2022 Insurance Providers Payer Name Payer Address Payer Phone Subscriber Number Group Number Insured Name Patient Relationship to Insured Coverage Start Date Coverage End Date [employer] [place] [address] [address] [place] [address] [id number] CASEY MALCOLM Self - patient is the insured MEDICAL (GENERAL) HISTORY Medical History History ICD Code hypertension diverticulitis palpitations/ pvc personal history of colon po lyps, last colonoscopy 10/19/17, five-year followup recommended. Gastroesophageal reflux disease Surgical History Surgery Date(Month/Year) mastoidectomy 2009 bladder mesh 2002 ears surgery tonsillectomy
--- OUTSIDE RECORDS SUMMARY | 2024-09-12 08:01 | XMS_ITS | Data Portability ---
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 Right mastoid cavity was filled with dried squamous debris as well as some mildly purulent discharge which was removed without complication today. Recommend 7 days of topical Ciprodex drops. She does have a systemic levofloxacin allergy, but she has tolerated topical Cipro drops in the past without problems. Follow up in 8 months for reevaluation and routine debridement. 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 Recommend two weeks of topical clotrimazole/bet amethasone cream to be used three times a day when it flares up. She already has this at home. May repeat as needed [email or web address] Not available 03/25/2024 08:59:05 05/27/2024 05/27/2024 69-year-old female with right canal wall down mastoidectomy presents for reevaluation following use of TobraDex drops for mastoid infection. On examination there is no further otorrhea and no granulation tissue noted. There is dried squamous debris and drop residue within mastoid cavity which was thoroughly cleaned today. Patient notes significant improvement in her symptoms. Continue dry ear precaution and follow-up as scheduled for repeat mastoid debridement. [email or web address] Not available 05/27/2024 14:06:56 Plan of Treatment Reminders Order Date Submit Date Provider Last Modified By Organization Details Last Modified Time Details Appointments None recorded. Lab None recorded. Referral None recorded. Procedures None recorded. Surgeries None recorded. Imaging None recorded. Medication Orders ciprofloxac in 0.3 %-dexametha sone 0.1 % ear drops,suspe nsion [address] [id number], [address], [place], [phone], 4 13:04:31 Patient TargetsNo targets recorded. Patient InstructionsNo instructions recorded. Reason for Referral None Reported. Results Created Date Observation Date Name Description Value Unit Range Abnormal Flag Note LastModifiedBy Organization Detail LastModifiedTime 03/12/20 24 10/24/2023 imagi ng/di agnos tic resul t No observ ation record ed. [email or web address] Not Available 17:43:39 Result Notes None recorded. 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 Recurren t debris collecti on within post mastoide ctomy cavity; Note: Date Diagnose d: 12/22/2014 3:30 PM (383.33) Not Available [facility] 4 02:59:44 Otorrhea of right ear [id number] 92332 Completed 202102/22/2024 Otorrhea , right ear; Note: Date Diagnose d: 2 3:15 PM (H92.11) FAISAL GARCIA MD [address] [place] [address], [place], [phone] , [facility] - [facility] 4 08:55:34 Postmast oidectom y complica tion 90701548 Active 2014 Other disorder s followin g mastoide ctomy, right ear; Note: Date Diagnose d: 05/05/20 15 1:54 PM (H95.191 ) Not Available [facility] 4 02:59:46 Unilater al conducti ve hearing loss with unrestri cted hearing on the contrala teral side Active 2013 Conducti ve HL, unilater al; Note: Date Diagnose d: 4 4:15 PM (389.05) Not Available [facility] 4 02:59:44 Mixed conducti ve and sensorin eural hearing loss of right ear 39636712573 105 Active 2014 Mixed conducti ve and sensorin eural hearing loss, unilater al, right ear, with unrestri cted hearing on the contrala teral side; Note: Date Diagnose d: 05/05/20 15 1:54 PM (H90.71) Not Available [facility] 4 02:59:43 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 640458772 Completed 201302/22/2024 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; Note: Date Diagnose d: 4 4:00 PM (385.33) Not Available [facility] 4 02:59:44 Pain of right temporom andibula r joint 86548265593 776332 Active 2016 Arthralg ia of right temporom andibula r joint; Note: Date Diagnose d: 05/10/20 17 4:12 PM (M26.621 ) Not Available [facility] 4 02:59:42 Chronic mastoidi tis 87153417 Active 2013 Chronic mastoidi tis; Note: Date Diagnose d: 4 4:00 PM (383.1) Not Available [facility] 4 02:59:45 Candidal otitis externa 91203052 Completed 201502/22/2024 Candidal otitis externa; Note: Date Diagnose d: 05/09/20 16 3:36 PM (B37.84) Not Available [facility] 4 02:59:46 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 Other specifie d superfic ial mycoses; Note: Date Diagnose d: 2 3:15 PM (B36.8) Not Available [facility] 4 02:59:43 Conducti ve hearing loss 63225475 Active 2014 Conducti ve hearing loss, unilater al, left ear, with unrestri cted hearing on the contrala teral side; Note: Date Diagnose d: 05/05/20 15 1:54 PM (H90.12) Not Available [facility] 4 02:59:43 Impacted cerumen in right ear 94478356372 05204 Active 2016 Impacted cerumen, right ear; Note: Date Diagnose d: 7 4:35 PM (H61.21) Not Available [facility] 4 02:59:45 Sensorin eural hearing loss in left ear 21120240962 109 Active 2023 Sensorin eural hearing loss, unilater al, left ear, with restrict ed hearing on the contrala teral side; Note: Date Diagnose d: 10/24/2023 3:26 PM (H90.A22 ) Not Available [facility] 4 02:59:46 Otorrhea of right ear 11797239185 52806 Active 2023 Otorrhea , right ear; Note: Date Diagnose d: 2 3:15 PM (H92.11) FAISAL GARCIA MD [address] [place] [address], [place], [phone] , [facility] - [facility] 4 08:55:34 Problem Notes None recorded. Procedures Surgical History Date Name Laterality Status Provider Name and Address Organization Details Recorded Time 4 Debridement of Mastoid Cavity right completed TANYA MITCHELL PA-C [address] [place] [address], [phone], [facility] - [facility] 05/27/2024 14:06:02 4 Debridement of Mastoid Cavity right completed FAISAL GARCIA MD [address] [place] [address], [phone], [facility] - [facility] 03/25/2024 08:59:33 Imaging Results Imaging Date Name Status LastModified by Organiz [facility] Details LastModified Time 10/24/2023 imaging/diag nostic result completed [email or web address] Information not available 03/12/2024 17:43:39 Procedure Notes None recorded. Medical Equipment None Reported. Allergies Allergen ID Allergen Name Allergen Category Reaction Reaction Severity Criticality Documentation Date Start Date Code Code System Note Provider Name and Address Organization Details Recorded Time 380203 Bactrim medicatio n other Not available Not available 12/04/2023 95295 9 RxNorm React ion: unkno wn, unspe cifie d;; Not Available [facility] 4 01:22:52 436377 levofloxa kathy medicatio n other Not available Not available 12/04/2023 13022 RxNorm React ion: unkno wn, unspe cifie d;; Not Available [facility] 4 01:22:52 Medications Name Sig Start Date Stop Date Status Note LastModified by Organization Details LastModified Time diltiazem CD 180 mg capsule,e xtended release 24 hr TAKE 1 CAPSULE BY MOUTH EVERY DAY active Not Available Not Available No t Available propranol ol ER 60 mg capsule,2 4 hr,extend ed release 05/09 completed Medicati on ID: [id number] Du ration Value: 30 Reason: () Brand Name: proprano lol Send Method: E-Prescr ibed Sub s Allowed: subs OK Medic ationGen ericName : proprano lol Not Available Not Available Not Available meclizine 12.5 mg tablet 03/25 completed Not Available Not Available Not Available levothyro xine 100 mcg tablet active Not Available Not Available Not Available famotidin e 20 mg tablet 2021 active Medicati on ID: [id number] B rand Name: famotidi ne Send Method: E-Prescr ibed Sub s Allowed: subs OK Medic ationGen ericName : famotidi ne Not Available Not Available Not Available doxycycli ne monohydra te 100 mg capsule 03/25 completed Not Available Not Available Not Available clotrimaz ole-betam ethasone 1 %-0.05 % topical cream Apply 1 a small amount twice a day 03/25 completed Medicati on ID: [id number] D uration Value: 14 Prescri bed By Name: Mckay Medrano nd Name: agnieszka perez-lynette yino ne Send Method: E-Prescr ibed Sub s Allowed: subs OK Speci al Instruct ion: Apply with fingerti p to external ear TID X 2 week and as needed M louicasrini nGeneric Name: agnieszka chenge-bet amethaso ne Not Available Not Available Not Available omeprazol e 20 mg capsule,d elayed release TAKE 1 CAPSULE BY MOUTH ONCE DAILY 03/25 completed Not Available Not Available Not Available metoprolo l succinate ER 25 mg tablet,ex tended release 24 hr 09/24 completed Medicati on ID: [id number] D uration Value: 30 Reason: () Brand Name: metoprol ol succinat e Send Method: E-Prescr ibed Sub s Allowed: subs OK Speci al Instruct ion: take 1 tablet by mouth once daily Me dication GenericN lydia: metoprol ol succinat e Not Available Not Available Not Available losartan 100 mg tablet 03/25 completed Not Available Not Available Not Available multivita min capsule 2013 active Medicati on ID: [id number] Br and Name: multivit hernandez Sen d Method: E-Prescr ibed Sub s Allowed: subs OK Medic ationGen ericName : multivit hernandez Not Available Not Available Not Available tobramyci n 0.3 %-dexamet hasone 0.1 % eye drops,pj pension SHAKE LIQUID AND INSTILL 4 DROPS TO RIGHT EAR TWICE DAILY FOR 7 DAYS 05/27 completed Not Available Not Available Not Available oxycodone 5 mg tablet TAKE 1 TABLET BY MOUTH EVERY 6 HOURS NEEDED PAIN SCALE OF 7-10 05/27 completed Not Available Not Available Not Available olmesarta n 40 mg tablet active Not Available Not Available Not Available ciproflox acin 0.3 %-dexamet hasone 0.1 % ear drops,pj pension Instill 4 drops twice a day by otic route for 7 days. 05/27 completed Not Available Not Available Not Available Vitamin D3 50 mcg (2,000 unit) capsule 2013 active Medicati on ID: [id number] Br and Name: Vitamin D3 Send Method: E-Prescr ibed Sub s Allowed: subs OK Medic ationGen ericName : Vitamin D3 Not Available Not Available Not Available Vitals Date Recorded Body height Body mass index (BMI) Body weight Provider Name and Address Organization Details Last Updated DateTime 05/27/2024 162.56 cm 37.8 kg/m2 59886.32 g Emily Garnica [place] - [facility] 05/27/2024 13:04:15 Social History None recorded. Functional Status None recorded. Mental Status None recorded. Family History Nothing Reported. Medical History Condition Response Thyroid Problems Y Hypertension Y GERD/Reflux Y Gynecological HistoryNo gynecological history recorded. Obstetrics History GPAL:G 0 P 0 0 0 0 Past Encounters Encounter ID Performer Location Encounter Start Date Encounter Closed Date Diagnosis/Indication Diagnosis SNOMED-CT Code Diagnosis ICD10 Code Diagnosis Note [id number] FAISAL GARCIA MD [facility] [address] [place] [address] 03/25/2024 08:35:08 03/25/2024 08:58:40 Postmastoidectomy complication 96868559 H95.191 Superficial mycosis 2762 02506 B36.9 Otorrhea of right ear 10 49078875 957797 H92.11 [id number] FAISAL GARCIA MD [facility] [address] [address] 05/27/2024 12:58:29 05/27/2024 14:56:43 Chronic mastoiditis 34682697 H70.11 Mixed cond uctive and sensorineural hearing loss of right ear 9522092796 9105 H90.71 Otorrhea of right ear 10 67396196 872520 H92.11 Health Concerns Section Related Observation LastModified by Organization Detai ls LastModified Time None Recorded Concern Status LastModified by Organization Details LastModified Time None Recorded Advance Directives Directive None Recorded Payers Encounter Date Sequence Insurance Name Policy Number Policy Atkins Covered Member ID Atkins Member ID Guarantor Name 03/25/2024 1 [facility] (MEDICARE REPLACEMENT/A DVANTAGE - HMO) [id number] Eunice Lawton [id number] Eunice Lawton 05/27/2024 1 [facility] (MEDICARE REPLACEMENT/A DVANTAGE - HMO) [id number] Eunice Lawton [id number] Eunice Lawton Notes Date Note Type Note Provider Name and Address Organization Details Recorded Time 03/25/2024 text/html 68 year old brendan dumont with a right canal wall down mastoidectomy presents for reevaluation and routinedebridement. She says she is doing well overall, no pain or discharge, but the right ear feels full . Left ear has been demonstrating a little bit of dry flaky skin, she's using clotrimazole/betame thasone cream periodically which helps. Last seen back in October at which point she was experiencing what appeared to be an episode of labyrinthitis followed by bilateral BPPV. She worked with a physical therapist at [facility] who was able to clear the problem. Balance is now back to normal. FAISAL GARCIA MD [address] [place] [address],[address], [address], [facility] 03/25/2024 09:00:05 05/27/2024 text/html 69-year-old brendan dumont with right canal wall down mastoidectomy presents for reevaluation. Recently treated for mastoid infection with TobraDex. She completed drops and feels there is no more drainage but has been having ear fullness. Can hear a crunching/gurgling sound in her ear. FAISAL GARCIA MD [address] [facility],[address], [address], [facility] 05/27/2024 17:25:04 OBGyn Episode No OBEpisode recorded.
--- NOTE | 2024-09-12 08:04 | A.OFFVIS_ITS ---
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 Patient reports having 2 lumps located at the volar aspect of palm, just below the base of her RF and MF. Denies injury. No numbness or tingling. Denies locking or catching. States pain presents with any type of gripping motion. 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 No other tx. Allergies levofloxacin [From Levaquin] Allergy (Severe, Verified 09/12/24 08:17) RED SKIN/BURNING SENSATION, rash metoprolol [METOPROLOL] Allergy (Severe, Verified 09/12/24 08:17) severe muscle weakness pineapple [PINEAPPLE] Allergy (Severe, Verified 09/12/24 08:17) TONGUE SWELLING venom-wasp Allergy (Severe, Verified 09/12/24 08:17) severe local reaction cyclobenzaprine [From Flexeril] Allergy (Intermediate, Verified 09/12/24 08:17) Nausea propranolol [PROPRANOLOL] Allergy (Intermediate, Verified 09/12/24 08:17) DYSPNEA/DEPRESSION, depression Sulfa (Sulfonamide Antibiotics) Allergy (Intermediate, Verified 09/12/24 08:17) RASH lisinopril Adverse Reaction (Intermediate, Verified 09/12/24 08:17) cough HPI HPI DIRECTOR SOCIAL-Lt hand pain/possibly cell 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 She complains of lumps in her palm, at the base of her middle & ring fingers. She says this has been present for ~6 months now. She says these cause her pain primarily when gripping things. She says she hikes often but has pain from gripping her hiking poles. She denies any family history of Dupuytrens. She denies any numbness, tingling, locking, or catching. She has a Hx of a right trigger thumb release at an outside clinic. 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 [facility] Medical History (Updated 09/12/24 @ 08:51 by Angel Boyer) Bronchitis [place]ER [place] (hard of hearing) PONV (postoperative nausea and vomiting) Hypothyroid Obesity (BMI 35.0-39.9 without comorbidity) Dizziness GERD (gastroesophageal reflux disease) Diverticulitis HTN (hypertension) PVCs (premature ventricular contractions) Surgical History (Updated 09/12/24 @ 08:23 by Genoveva Betancourt [facility]) Hx of hand surgery History of hernia repair (03/26/24) Hx of blepharoplasty H/O colonoscopy Hx of tonsillectomy History of bladder surgery H/O mastoidectomy H/O esophagogastroduodenoscopy Social History Household Members: Spouse Housing: House Are you a primary health care law specialist to a significant other at home: No Do you presently have visiting nurse or other home services: No Alcohol intake: current Alcohol intake frequency: 0-2 drinks per day Patient Tobacco Use Status: Former Tobacco user Tobacco use type: Cigarette Years Smoked: 10 Advance Directives Date on File: 07/05/23 service: No Review of Systems Const All systems reviewed & are unremarkable except as noted in HPI and below Physical Exam Vital Signs: BMI result Body Mass Index 37.1 Const General: cooperative, healthy appearing and no acute distress Orientation/consciousness: patient oriented x3 HEENT Head: Yes normocephalic and Yes atraumatic Eyes EOM: EOMs intact bilaterally Resp Effort & Inspection: normal respiratory effort and able to speak in complete sentences Cardio Jugular venous distension: no JVD Skin General skin exam: turgor normal Rashes: no rashes Neuro General: patient oriented x3 Extrem Other: Evaluation of Left Upper Extremity: The patient is alert, oriented, and in no acute distress Neuro: Median, Ulnar, Radial nerves motor and sensory intact and sensation is normal to the tips of all digits Vascular: Cap refill brisk ROM: She can make a fist and extend all her digits Locking or catching Skin: No lacerations or abrasions. General: No Ecchymosis. No Erythema or evidence of infection. She has an approximately 5-6 mm diameter soft tissue mass in line with the left middle finger just proximal to the A1 nuria. It is soft and could represent a retinacular ganglion, or perhaps an early Dupuytren's nodule She has a 2nd 5-6 mm diameter soft tissue mass in line with the left ring finger. This 1 is at about the level of the proximal mid palmar crease. I think this is less likely to be a retinacular ganglion, but it could represent an early Dupuytren's nodule Both of these masses are nontender in clinic. There are no overlying skin changes. Again there was no locking or catching. They are most problematic for her when she grabs her hiking poles or [employer] school principal anything in her hand for prolonged period of time as the mass effect causes some discomfort. Radiographs: 3 views of the left hand were taken and viewed by me today in clinic. They show no fractures or dislocations. Psych Appearance: grossly normal Affect: normal affect Attitude: cooperative Assessment & Plan Assessment & Plan (1) Mass of left hand: Comment: Palmar, in line with MF & RF Code(s): R22.32 - Localized swelling, mass and lump, left upper limb Category: Medical Plan Assessment & plan: 1. Left palmar hand mass In line with middle finger, just proximal to the a1 nuria 2. Left palmar hand mass In line with ring finger, at the mid-palmar crease DDx for both includes: retinacular cyst vs Dupuytrens Nodule The one in line with the middle finger is softer to touch, and more like a cyst I educated her about this condition I discussed operative and non-operative treatment options, including an aspiration of the mass in line with the middle finger in clinic. Patient declined this procedure today, and would like to take a wait and see approach I educated her about Dupuytrens disease, and directed her to the [email or web address] website for more information She can follow up prn Scribed for Rabia Cannon MD by Angel Boyer, medical health researcher, on 09/12/24 at 8:30 AM, EST. Orders: Orders XR hand LT min 3V Today M79.642 - Pain in left hand Coding Level of Care Code New Pt Level 4 (03168) Diagnoses Mass of left hand R22.32
[2024-09-12 08:16] VITALS: BMI 37.1
== END 2024-09-12 10:41 | disposition home or self-care (01) ==
PROVIDERS: PCP Internal Medicine; Visit Provider Orthopaedic Surgery
DX: R22.32 Localized swelling, mass and lump, left upper limb (principal)
CPT/HCPCS: 99203

== ENCOUNTER → 2024-09-12 08:00 | Outpatient (BNV) | payer BC, SELFPAY | PROVIDERS: Visit Provider Radiology Diagnostic Radiology | DX: M18.12 Unilateral primary osteoarthritis of first carpometacarpal joint, left hand (principal) | CPT/HCPCS: 73130 ==

== ENCOUNTER 2024-09-12 11:05 | Outpatient (REF) | payer MEDICARE, SELFPAY ==
--- NOTE | ~2024-09-12 | XR_ITS ---
EXAMINATION: XR HAND, LEFT CLINICAL INFORMATION: M79.642 - Pain in left hand COMPARISON: None available. TECHNIQUE: PA, lateral, and oblique views of the left hand. FINDINGS: Sclerosis of the articular surface of the first carpometacarpal joint. Sclerosis along the articular surface of the radius. No acute cortical disruption or malalignment. No lytic or blastic lesions. No subcutaneous emphysema. 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 Electronically signed by: Houston Calderon MD 09/12/2024 10:12 AM OCTAVIO
--- OUTSIDE RECORDS SUMMARY | 2024-09-16 13:31 | XMS_ITS | Data Portability ---
Author Organization [place] - [facility], Allergy Address [address] [place] [address] Care Team Providers Care Psychiatric Technician Name Role Phone JONATAN INGRAM Primary Care [...] this at home. May repeat as needed [email or web address] Not available 03/25/2024 08:59:05 05/27/2024 05/27/2024 69-year-old [...] follow-up as scheduled for repeat mastoid debridement. [email or web address] Not available 05/27/2024 14:06:56 Plan of Treatment Reminders Order Date Submit Date Provider Last Modified By Organization Details Last Modified Time Details Appointments None recorded. Lab None recorded. Referral None recorded. Procedures None recorded. Surgeries None recorded. Imaging None recorded. Medication Orders ciprofloxac in 0.3 %-dexametha sone 0.1 % ear drops,suspe nsion 2023 024 [id number], [address], [place], [phone], 4 13:04:31 Patient TargetsNo targets recorded. 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 Recurren t debris collecti on within post mastoide ctomy cavity; Note: Date Diagnose d: 12/22/2014 3:30 PM (383.33) Not Available [facility] 4 02:59:44 Otorrhea of right ear [id number] 42430 Completed 202102/22/2024 Otorrhea , right ear; Note: Date Diagnose d: 2 3:15 PM (H92.11) FAISAL GARCIA MD [address] [place] [address], [place], [address] , [facility] - [facility] 4 08:55:34 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 Other disorder s followin g mastoide ctomy, right ear; Note: Date Diagnose d: 05/05/20 15 1:54 PM (H95.191 ) Not Available [facility] 4 02:59:46 Unilater al conducti ve hearing loss with unrestri cted hearing on the contrala teral side Active 2013 Conducti ve HL, unilater al; Note: Date Diagnose d: 4 4:15 PM (389.05) Not Available [facility] 4 02:59:44 Mixed conducti ve and sensorin eural hearing loss of right ear 39408495125 105 Active 2014 Mixed conducti ve and sensorin eural hearing loss, unilater al, right ear, with unrestri cted hearing on the contrala teral side; Note: Date Diagnose d: 05/05/20 15 1:54 PM (H90.71) Not Available [facility] 4 02:59:43 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 266760738 Completed 201302/22/2024 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; Note: Date Diagnose d: 4 4:00 PM (385.33) Not Available [facility] 4 02:59:44 Pain of right temporom andibula r joint 42807612700 379326 Active 2016 Arthralg ia of right temporom andibula r joint; Note: Date Diagnose d: 05/10/20 17 4:12 PM (M26.621 ) Not Available [facility] 4 02:59:42 Chronic mastoidi tis 52100430 Active 2013 Chronic mastoidi tis; Note: Date Diagnose d: 4 4:00 PM (383.1) Not Available [facility] 4 02:59:45 Candidal otitis externa 58950921 Completed 201502/22/2024 Candidal otitis externa; Note: Date Diagnose d: 05/09/20 16 3:36 PM (B37.84) Not Available [facility] 4 02:59:46 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 Other specifie d superfic ial mycoses; Note: Date Diagnose d: 2 3:15 PM (B36.8) Not Available [facility] 4 02:59:43 Conducti ve hearing loss 08967200 Active 2014 Conducti ve hearing loss, unilater al, left ear, with unrestri cted hearing on the contrala teral side; Note: Date Diagnose d: 05/05/20 15 1:54 PM (H90.12) Not Available [facility] 4 02:59:43 Impacted cerumen in right ear 78244989445 02309 Active 2016 Impacted cerumen, right ear; Note: Date Diagnose d: 7 4:35 PM (H61.21) Not Available [facility] 4 02:59:45 Sensorin eural hearing loss in left ear 84345034401 109 Active 2023 Sensorin eural hearing loss, unilater al, left ear, with restrict ed hearing on the contrala teral side; Note: Date Diagnose d: 10/24/2023 3:26 PM (H90.A22 ) Not Available [facility] 4 02:59:46 Otorrhea of right ear 47269196623 44026 Active 2023 Otorrhea , right ear; Note: Date Diagnose d: 2 3:15 PM (H92.11) FAISAL GARCIA MD [address] [place] [address], [place], [address] , [facility] - [facility] 4 08:55:34 Problem Notes None recorded. Procedures Surgical History Date Name Laterality Status Provider Name and Address Organization Details Recorded Time 4 Debridement of Mastoid Cavity right completed TANYA MITCHELL PA-C [address] [place] [address], [phone], [facility] - [facility] 05/27/2024 14:06:02 4 Debridement of Mastoid Cavity right completed FAISAL GARCIA MD [address] [place] [address], [phone], [facility] - [facility] 03/25/2024 08:59:33 Imaging Results Imaging Date Name Status LastModified by [facility]iz [facility] Details LastModified Time 10/24/2023 imaging/diag nostic result completed [email or web address] Information not available 03/12/2024 17:43:39 Procedure Notes None recorded. Medical Equipment None Reported. Allergies Allergen ID Allergen Name Allergen Category Reaction Reaction Severity Criticality Documentation Date Start Date Code Code System Note Provider Name and Address Organization Details Recorded Time 219802 Bactrim medicatio n other Not available Not available 12/04/2023 17690 9 RxNorm React ion: unkno wn, unspe cifie d;; Not Available [facility] 4 01:22:52 781965 levofloxa kathy medicatio n other Not available Not available 12/04/2023 48470 RxNorm React ion: unkno wn, unspe cifie d;; Not Available [facility] 4 01:22:52 Medications Name Sig Start Date Stop Date Status Note LastModified by Organization Details LastModified Time diltiazem CD 180 mg capsule,e xtended release 24 hr TAKE 1 CAPSULE BY MOUTH EVERY DAY active Not Available Not Available No t Available propranol ol ER 60 mg capsule,2 4 hr,extend ed release 05/09 completed Medicati on ID: 75401 Du ration Value: 30 Reason: () Brand [...] mg tablet 2021 active Medicati on ID: 361181 B rand Name: famotidi ne Send Method: E-Prescr ibed Sub s Allowed: subs OK Medic ationGen ericName : famotidi ne Not Available Not Available Not Available doxycycli ne monohydra te 100 mg capsule 03/25 completed Not Available Not Available Not Available clotrimaz ole-betam ethasone 1 %-0.05 % topical cream Apply 1 a small amount twice a day 03/25 completed Medicati on ID: 021523 D uration Value: 14 Prescri bed By [...] 24 hr 09/24 completed Medicati on ID: 953667 D uration Value: 30 Reason: () Brand [...] min capsule 2013 active Medicati on ID: 14411 Br and Name: multivit hernandez Sen d [...] unit) capsule 2013 active Medicati on ID: 58313 Br and Name: Vitamin D3 Send Method: E-Prescr ibed Sub s Allowed: subs OK Medic ationGen ericName : Vitamin D3 Not Available Not Available Not Available Vitals Date Recorded Body height Body mass index (BMI) Body weight Provider Name and Address Organization Details Last Updated DateTime 05/27/2024 162.56 cm 37.8 kg/m2 34648.32 g Emily Garnica [place] - [facility] 05/27/2024 13:04:15 Social History None recorded. Functional Status None recorded. Mental Status None recorded. Family History Nothing Reported. Medical History Condition Response Thyroid Problems Y GERD/Reflux Y Hypertension Y Gynecological HistoryNo gynecological history recorded. Obstetrics History GPAL:G 0 P 0 0 0 0 Past Encounters Encounter ID Performer Location Encounter Start Date Encounter Closed Date Diagnosis/Indication Diagnosis SNOMED-CT Code Diagnosis ICD10 Code Diagnosis Note [id number] FAISAL GARCIA MD [facility] [address] [place] [address] 03/25/2024 08:35:08 03/25/2024 08:58:40 Postmastoidectomy complication 18781057 H95.191 Superficial mycosis 2762 38971 B36.9 Otorrhea of right ear 10 02655664 110944 H92.11 [id number] FAISAL GARCIA MD [facility] [address] [address] 05/27/2024 12:58:29 05/27/2024 14:56:43 Chronic mastoiditis 01858032 H70.11 Mixed cond uctive and sensorineural hearing loss of right ear 6916548659 9105 H90.71 Otorrhea of right ear 10 79929288 782862 H92.11 Health Concerns Section Related Observation LastModified by Organization Detai ls LastModified Time None Recorded Concern Status LastModified by Organization Details LastModified Time None Recorded Advance Directives Directive None Recorded Payers Encounter Date Sequence Insurance Name Policy Number Policy Atkins Covered Member ID Atkins Member ID Guarantor Name 03/25/2024 1 [facility] (MEDICARE REPLACEMENT/A DVANTAGE - HMO) [id number] Eunice Lawton [id number] Eunice Lawton 05/27/2024 1 [facility] (MEDICARE REPLACEMENT/A DVANTAGE - HMO) [id number] Eunice Lawton [id number] Eunice Lawton Notes Date Note Type Note [...] She worked with a physical therapist at [facility] who was able to clear the problem. Balance is now back to normal. FAISAL GARCIA MD [address] [place] [address],[address], [address], [facility] 03/25/2024 09:00:05 05/27/2024 text/html 69-year-old brendan dumont with right canal wall down mastoidectomy presents for reevaluation. Recently treated for mastoid infection with TobraDex. She completed drops and feels there is no more drainage but has been having ear fullness. Can hear a crunching/gurgling sound in her ear. FAISAL GARCIA MD [address] [facility],[address], [address], [facility] 05/27/2024 17:25:04 OBGyn Episode No OBEpisode recorded.
== END 2024-09-12 11:06 | disposition home or self-care (01) ==
LOC: HO.HOSX 11:05
PROVIDERS: Visit Provider Orthopaedic Surgery
DX: M79.642 Pain in left hand (principal)
CPT/HCPCS: 73130

== ENCOUNTER 2025-02-27 08:32 | Outpatient (REF) | payer MEDICARE, SELFPAY ==
--- NOTE | ~2025-02-27 | MM_ITS ---
EXAMINATION: DXA BONE DENSITY AXIAL HISTORY: POSTMENOPAUSAL TECHNIQUE: [employer] Dual energy absorptiometry (DEXA) of the lumbar spine, total left hip, and femoral neck was performed. COMPARISON: Comparison is made with the prior examination dated 10/27/2021. FINDINGS: The bone mineral density of the lumbar spine is 1.166 g/cm2, corresponding to a T-score of -0.1, and a Z-score of 0.4. This is indicative of normal bone mineral density. This represents a BMD change of 8.1% compared to the prior exam. This is statistically significant. The bone mineral density of the left total hip is 1.040 g/cm2, corresponding to a T-score of 0.3, and a Z-score of 0.8. This is indicative of normal bone mineral density. This represents a BMD change of 0.8% compared to the prior exam. This is not statistically significant. The bone mineral density of the left femoral neck is 1.024 g/cm2, corresponding to a T-score of -0.1, and a Z-score of 0.8. This is indicative of normal bone mineral density. This represents a BMD change of 6.0% compared to the prior exam. FRACTURE RISK: The FRAX index suggests a ten year probability of major osteoporotic fracture of 6.4%, and of hip fracture 0.3%. MM/XR DEXA axial skeleton IMPRESSION: Based on bone mineral density, and according to World Health Organization (WHO) criteria, the diagnosis is consistent with normal bone mineral density. Statistically, 68% of repeat scans fall within 1 SD (+/- 0.010 g/cm2 for AP spine L1-L4) and 1 SD (+/- 0.012 g/cm2 for femur total) FRAX is a trademark of the [employer] [place] [employer] Met[employer] Disease, a World Health Organization (WHO) Collaborating Center. Electronically signed by: Jatin Mayers MD 02/27/2025 09:11 AM EDT
--- OUTSIDE RECORDS SUMMARY | 2025-02-27 08:44 | XMS_ITS | Patient Health Record ---
Author Organization [facility] Address [address] [place] [address] Care Team Providers Care Operations Manager/Coordinator Name Role Phone Ronan Flynn MD Primary Care Provider Pk Mai Unavailable [phone] Allergies Allergen (clinical drug ingredient) Drug/Non Drug Allergy documented on EMR Reaction Allergy Type Onset Date Status ciprofloxacin Cipro severe skin rash Drug Allergy Active Levaquin skin rash Drug Allergy Active sulfa skin rash Drug Allergy Active Reason For Referral No Information Medications Medication SIG (Take, Route, Frequency, Duration) Notes Start Date End Date Status Levothyroxine Sodium 100 MCG 1 tablet Or ally Once a day Active Metoprolol Succinate ER 25 MG 1 tablet Orally Once a day Active Vitamin D Active Multi-Day Vitamins A ctive Physical Therapy . . . 2-3x/week; Durat ion: 3-4 weeks 03/22/2016 Active Plan Of Treatment Pending Test Test Name Order Date X ray : Foot, left 2V 03/22/2016 Insurance Providers Payer Name Payer Address Payer Phone Subscriber Number Group Number Insured Name Patient Relationship to Insured Coverage Start Date Coverage End Date [facility] [address] [facility] [place] [id number] Eunice Lawton Self - patient is the insured Medical (General) History Medical History History ICD Code Back,Hip,and Knee pain Diverticulosis Hiatal hernia High blood pressure Thyroid disorder Reflux Mumps Measles Chicken pox Surgical History Surgery Date(Month/Year) ear surgery 07/2012
--- OUTSIDE RECORDS SUMMARY | 2025-02-27 08:44 | XMS_ITS | Patient Health Record ---
Author Organization [facility] Address [address] [place] [address] Care Team Providers Care Child Care Associate Name Role Phone Ronan Flynn MD Primary Care Provider Unavaila Steve Taveras Jr Allergies Allergen (clinical drug ingredient) Drug/Non Drug Allergy documented on EMR Reaction Allergy Type Onset Date Status propranolol Propranolol Unknown Drug Allergy Act eddie metoprolol Metoprolol Unknown Drug Allergy Activ e Sulfa Unknown Drug Allergy Active Levaquin Unknown Drug Allergy Active Reason For Referral No [...] Once a day Active Vitamin D Active Immunizations Vaccine Route Administration Date Status Comme nts Influenza Unknown 05/07/2019 Administered Influenza Unknown 03/23/2022 Administered Social History Alcohol Screen Question Answer Notes Did you [...] Never (0 point) Points 3 Interpretation Positive Problems Problem Type SNOMED Code ICD Code Onset Dates Problem Status W/U Status Risk Notes Problem 397480624 Colon cancer screening (Z12.11) Active confirmed Problem 67824782 Epigastric pain (R10.13) Active confirmed Problem Diverticular disease of colon (650926364) Diverticulosis of large intestine without perforation or abscess without bleeding (K57.30) Active confirmed Problem 06589884 Other dysphagia (R13.19) Active confirmed Problem Dysphagia (74239726) Dysphagia (R13.10) Active confirmed Problem 391394406 Diverticulitis (K57.92) Active confirmed Problem Gastroesophageal reflux disease (902074774) Gastroesophageal reflux disease (K21.9) Active confirmed Problem 214638688 Gastroesophageal reflux disease without esophagitis (K21.9) Active confirmed Plan Of Treatment Future Test Test Name Order Date COLONOSCOPY 10/11/2017 UPPER GI ENDOSCOPY 10/06/2022 COLONOSCOPY 10/06/2022 Insurance Providers Payer Name Payer Address Payer Phone Subscriber Number Group Number Insured Name Patient Relationship to Insured Coverage Start Date Coverage End Date [employer] [place] [address] [address] [place] [address] [id number] CASEY MALCOLM Self - patient is the insured Medical (General) History Medical History History ICD Code hypertension diverticulitis palpitations/ pvc personal history of colon po lyps, last colonoscopy 10/19/17, five-year followup recommended. Gastroesophageal reflux disease Surgical History Surgery Date(Month/Year) mastoidectomy 2009 bladder mesh 2002 ears surgery tonsillectomy
== END 2025-02-27 08:33 | disposition home or self-care (01) ==
LOC: HO.MAMMO 08:32
PROVIDERS: PCP Internal Medicine; Visit Provider Internal Medicine
DX: Z13.820 Encounter for screening for osteoporosis (principal); Z78.0 Asymptomatic menopausal state
CPT/HCPCS: 77080

== ENCOUNTER → 2025-02-27 08:45 | Outpatient (BNV) | payer MEDICARE, SELFPAY | PROVIDERS: PCP Internal Medicine; Visit Provider Radiology Diagnostic Radiology | DX: E28.39 Other primary ovarian failure (principal) | CPT/HCPCS: 77080 ==

== ENCOUNTER 2025-06-23 08:44 | Outpatient (REF) | payer MEDICARE, SELFPAY ==
--- NOTE | ~2025-06-23 | MM_ITS ---
EXAMINATION: MM SCREENING DIGITAL BREAST TOMOSYNTHESIS, BILATERAL CLINICAL INFORMATION: Screening. Asymptomatic. COMPARISON: Mammography: Comparison is made with available priors TECHNIQUE: Digital breast mammography with tomosynthesis is performed in both the craniocaudal and mediolateral oblique views along with computer-aided detection (CAD). FINDINGS: The breasts are almost entirely fatty. There are no significant masses, abnormal calcifications, or other abnormalities. MM/MM tomosynthesis screening BI IMPRESSION: No mammographic evidence of malignancy. ASSESSMENT: BI-RADS Category 1: Negative RECOMMENDATION: Routine annual mammography screening. 1 year F/U This examination should not preclude the clinical evaluation of a suspicious palpable abnormality. This patient's information was entered into a reminder system with a target due date for their next mammogram. Electronically signed by: Tati Rolon DO 06/23/2025 10:34 AM OCTAVIO MARIE
--- OUTSIDE RECORDS SUMMARY | 2025-06-23 08:53 | XMS_ITS | Clinical Summary ---
Author Organization [facility] Address [address] [place] [address] Phone Care Team Providers Care Half Sole Fitter Name Role Phone Ronan Flynn MD Unavailable [phone] Steve Trinh MD Unavailable Ronan Flynn MD Primary Care Provider [phone] Allergies Active Allergy Reactions Criticality Noted Date Comments Bee Pollen 06/06/2018 Severe local reaction Cyclobenzaprine Nausea Only 06/06/2018 Nausea Levofloxacin Unknown High 06/06/2018 Burning of skin and a red rash Other reaction(s): RED SKIN/BURNING SENSATION, rash Lisinopril 06/06/2018 cough Other reaction(s): cough Metoprolol Unknown High 10/27/2022 Other reaction(s): severe muscle weakness Metoprolol Tartrate Other (See Comments) 06/06/2018 depression Pineapple High 10/27/2022 Other reaction(s): TONGUE SWELLING Propranolol Other (See Comments),Myalgia, Unknown High 06/06/2018 Severe muscle pain and depression Other reaction(s): DYSPNEA/DEPRESSION, depression Sulfa (Sulfonamide Antibiotics) Rash High 06/06/2018 rash Venom-Wasp 10/27/2022 Other reaction(s): severe local reaction Medications cholecalciferol (VITAMIN D3) 2,000 unit capsule Take 2,000 Units by mouth daily. Active Lactobacillus acidophilus Cap Take 1 capsule by mouth daily. Active albuterol (PROAIR HFA) 90 mcg/actuation inhalerIndicati ons:Bronchospas m Inhale 2 puffs into the lungs every 4 (four) hours as needed. 8 g 5 11/22/19 23 Active metroNIDAZOLE (METROGEL) 1 % gelIndications: Acne rosacea Apply topically daily. 60 g 3 11/22/19 23 Active multivit-min/ir on/folic acid/K (ADULTS MULTIVITAMIN ORAL) Take 1 capsule by mouth daily. Active ibuprofen (ADVIL,MOTRIN) 200 MG tablet Take 200-600 mg by mouth 2 (two) times a week. As needed Active melatonin 10 mg Chew Take 1 tablet by mouth nightly at bedtime. Active magnesium 200 mg tablet Take 200 mg by mouth daily. 10/23/19 22 Active dilTIAZem (CARDIZEM CD) 180 MG 24 hr capsuleIndicati ons:Benign essential hypertension Take 1 capsule (180 mg total) by mouth every morning. 90 capsule 3 08/18/19 25 Active levothyroxine (SYNTHROID, LEVOTHROID) 100 MCG tabletIndicatio ns:Hypothyroidi sm, unspecified type Take 1 tablet (100 mcg total) by mouth as directed. Take 100mcg q am on an empty stomach every day except take 50mcg on Sunday. 90 tablet 3 09/24/19 25 Active nystatin creamIndication s:Tinea cruris Apply 1 Application topically 2 (two) times a day as needed (dx: B35.6). 60 g 4 09/24/19 25 Active olmesartan (BENICAR) 40 mg tabletIndicatio ns:Benign essential hypertension Take 1 tablet (40 mg total) by mouth daily. 90 tablet 3 10/14/19 25 Active fluticasone propionate (FLONASE) 50 mcg/actuation nasal sprayIndication s:Allergic rhinitis due to other allergic trigger, unspecified seasonality 2 sprays by Nasal route daily. 16 g 12 05/25/20 25 Active methylPREDNISol one (MEDROL DOSEPACK) 4 mg tabletIndicatio ns:Allergic rhinitis due to other allergic trigger, unspecified seasonality,Eus tachian tube dysfunction, right follow package directions 21 tablet 05/25/20 25 Active fluticasone propionate (FLONASE) 50 mcg/actuation nasal spray 2 sprays by Nasal route daily. 1 Bottle 5 06/06/20 18 025 Discontinued Active Problems Problem Noted Date Diagnosed Date Viral infection 02/06/2025 Assessment & Plan (02/06/2025 12:33 PM EDT): Complaints of swollen glands, sore throat,headache, fatigue and body aches for about 2 days No fevers, no night sweats, no abdominal pain, no n/v/d No recent tick bite or insect bite COVID neg Improvement in symptoms today Seems viral in nature, spoke about supportive care such as hydration OTC pain medications etc If no improvement by Sunday she will come in office for eval (may need tick pannel) Patient verbalized understanding and agrees with this plan of care Reviewed signs and symptoms and reasons to seek medical care Diverticular disease of colon 02/04/2025 Hearing loss 02/04/2025 Joint pain 02/04/2025 Palpitations 02/04/2025 Primary insomnia 02/04/2025 Pure hypercholesterolemia 02/04/2025 Pre-op examination 04/10/2024 Overview (04/10/2024): 03/11/24 Had pre op done for desired r inguinal and umbilical elective hernia surgery saw Dr. Yarbrough for clearance cleared- Female cystocele 03/26/2024 Overview (03/26/2024): Kiersten w pv urology last OV02/29/[address] Patrice Rodriguez- they did cystoscopy- for hematuria- no findings , montior, has knowns stones 2mm, monitor, frequency- life style modification- f/u is prn Umbilical hernia 01/31/2024 Overview (01/31/2024): 01/22/[address] Alvarez Melo [facility] gen surgery for umbilical hernia AND right inguinal hernia they will monitor for now and pt will call when ready to book Inguinal hernia, right 01/31/2024 Overview (01/31/2024): 01/22/[address] Alvarez Melo [facility] gen surgery for umbilical hernia AND right inguinal hernia they will monitor for now and pt will call when ready to book Benign neoplasm of colon 04/20/2023 023 Depression 04/20/2023 04/20/2023 Diverticular disease 04/20/2023 04/20/2023 Diverticulitis 04/20/2023 04/20/2023 Hyperlipidemia 04/20/2023 04/20/2023 Acquired hypothyroidism 04/20/2023 04/20/20 23 Obesity with body mass index 30 or greater 04/2004/20/2023 Vitamin D deficiency 04/20/2023 04/20/2023 Rosacea 04/20/2023 04/20/2023 Acute non-recurrent maxillary sinusitis 10/15/19 22 Assessment & Plan (10/14/2021 10:05 AM EDT): This is most likely a nonrecurrent sinusitis of the maxillary sinuses particularly the right side. We advise her heavily against any decongestants given her blood pressure and it would be reasonable to start her on Zmax 500 for 4 days to clear up any bacterial infections of the sinuses that might be involved or primary to the sinusitis. She agrees so azithromycin will be called in. She can irrigate the nose with saline but stay away Afrin nasal spray please. Her lungs were clear to auscultation she can take the ProAir if she needed but right now its not necessary. Benign essential hypertension 08/11/2019 Assessment & Plan (10/14/2021 10:06 AM EDT): Her blood pressure is elevated in the setting of acute sinusitis, I would advise her to check her blood pressure at home and report to us if it is elevated over the weekend. I will be on-call and then can manage it if it is much higher but at its current level I am advising against [id number] medicine that might raise it such as Sudafed. Continue however with the antihypertensives that are prescribed. Esophageal reflux 08/11/2019 Tympanic membrane perforation 06/06/2018 Encounters Date Type Department Care Team Description 05/25/2025 8:00 AM EST Office Visit [facility] Internal Medicine [address] [facility] [place] [address] Ronan Flynn MD Benign essential hypertension (Primary Dx); Need for prophylactic vaccination and inoculation against influenza; Allergic rhinitis due to other allergic trigger, unspecified seasonality; Eustachian tube dysfunction, right; Pure hypercholesterolemia; Impaired fasting glucose; Hypothyroidism, unspecified type from Last 3 Months Immunizations Immunization Administration Dates Next Due COVID-19 (Pre-05/14) Pfizer Vaccine, mRNA, PF 07/30/2020,07/09/2020 INFLUENZA, SPLIT VIRUS, TRIV ALENT W/ PRESERVATIVE IM 03/23/2022,05/07/2019,05/15/2016,2014,05/06/2012 Influenza High-Dose Quadriva lent Preservative Free IM 05/28/2023 Influenza High-Dose Trivalen t Preservative Free IM 05/25/2025,05/15/2024 Influenza Quadrivalent Prese rvative Free IM 05/02/2022,04/28/2021,04/20/2020,2018,05/08/2018 Influenza Quadrivalent w/ Preservative IM 05/04/2017 Influenza trivalent preserva tive free intradermal 04/09/2013 Influenza, Unspecified Formulation 2010 Pneumococcal conjugate PCV20 11/23/2023 RSV Vaccine (bivalent) 05/15/2024 Td, unspecified formulation 07/23/2002 Tdap 05/08/2020,06/06/2012 Zoster recombinant 05/08/2020,03/09/2020 Family History Medical History Relation Comments Heart disease Father Stroke Father Cirrhosis Mother Relation Status Comments Father (Age 84) RUPTURED COLON Mother (Age 58) cirrhosis QUES TION HEMACHROMATOSIS Social History Tobacco Use Types Packs/Day Years Used Date Smoking Tobacco: Former Cigarettes 0.5 8 1 989 - 1997 Smokeless Tobacco: Never Tobacco Cessation:Counseling Given: Not Answered Alcohol Use Standard Drinks/Week Comments Yes 3 (1 standard drink = 0.6 oz pur e alcohol) 3 drinks, weekends Child or Family Care Answer Date Record ed Do you have problems with on e of the following making it difficult for you to work, study, or receive health care? No 11/14/2022 Education Answer Date Recorded Are you interested in more education? Not on chetan e 11/18/2024 Are you concerned about learning? Not on file 11/18/2024 No 11/18/2024 No 11/18/2024 Food Answer Date Recorded Within the past 6 months we worried whether our food would run out before we got money to buy more. Never True 11/14/2022 Within the past 6 months the food we bought just didn't last and we didn't have enough money to get more. Never True Residential Stability Answer Date Recor ded What is your housing situation today? I have cody sing 11/14/2022 How many times have you move d in the past 12 months? Zero (I did not move) 11/14/2022 Paying for Meds Answer Date Recorded Do you have trouble paying for medicines? No 11/14/2022 Paying Utility Bills Answer Date Record ed Do you have trouble paying your heating or elect ricity bill? No 11/14/2022 Transportation Answer Date Recorded Has the lack of transportati on kept you from medical appointments or from getting medications? No 11/14/2022 Unemployment Answer Date Recorded Are you currently unemployed or working on a part-time or temporary basis, and looking for work? No 09/27/2021 Digital Access Answer Date Recorded No 11/18/2024 No 11/18/2024 Reliable internet access at home? Not on file 11/18/2024 Device with a working camera? Not on file Intimate Partner Violence Answer Date R ecorded Denied Basic Needs Not on file 11/24/2024 In the past 12 months have y ou been in a relationship with a person who hurts, threatens, or tries to control you? No 11/24/2024 Worried food would run out Not on file 11/24 In the past 12 months have y ou been in a relationship with a person who hurts, threatens, or tries to control you? No 11/24/2024 Comments No Sex and Gender Information Value Date Recorded Sex Assigned at Female 02/06/2020 7:38 PM EDT Legal Sex Female 9:53 PM EDT Gender Identity Female 02/06/2020 7:38 PM EDT Sexual Orientation Not on file Last Filed Vital Signs Vital Sign Reading Time Taken Comments Blood Pressure 120/66 05/25/2025 8:17 AM EST Pulse 81 05/25/2025 8:17 AM EST Temperature 36.4 C (97.6 F) 05/25/2025 8:17 AM EST Respiratory Rate 16 05/25/2025 8:17 AM EST Oxygen Saturation 94% 05/25/2025 8:17 AM EST Inhaled Oxygen Concentration - - Weight 102 kg (224 lb 12.8 oz) 05/25/2025 8:17 A M EST Height 162.5 cm (5' 3.98 ) 05/25/2025 8:17 AM ES T Body Mass Index 38.62 05/25/2025 8:17 AM EST Plan of Treatment Upcoming Encounters Date Type Department Care Team (Late st Contact Info) Description 12/04/2025 2:00 PM EDT Office Visit [facility] Internal Medicine [address] [place] [address] Ronan Flynn MD [address] [place] [address] [email or web address] Health Maintenance Due Date Last Done Comments COLOGUARD 2002 FIT TEST 2002 FOBT 2002 SIGMOIDOSCOPY 2002 VIRTUAL COLONOSCOPY 2002 COVID-19 VACCINE ( season) 2025 05/15/2024, 05/28/2023, 05/23/2022, Additional history exists BLOOD PRESSURE 11/22/2025 05/25/2025 CREATININE LEVEL 12/29/2025 12/29/2024, 10/2023, 11/26/2023, Additional history exists POTASSIUM LEVEL 12/29/2025 12/29/2024, 10/2023, 07/03/2023, Additional history exists TSH LEVEL 12/29/2025 12/29/2024, 07/24, 05/26/2024, Additional history exists DEPRESSION SCREENING 02/06/2026 02/06/2025 MAMMOGRAM 02/27/2027 02/27/2025, 11/20, 12/05/2023, Additional history exists COLONOSCOPY 10/28/2027 10/27/2022, 09/22, 10/19/2017, Additional history exists COLORECTAL CANCER SCREENING 10/28/2027 SCREENING FOR DIABETES 12/30/2027 , 05/26/2024, 10/29/2019 LIPID PANEL 12/29/2029 12/29/2024, 06/22, 07/04/2023, Additional history exists Adult Td,Tdap Booster 05/08/2030 05/08/2020 , 06/06/2012, 07/23/2002 HEPATITIS C SCREENING Completed 10/29/2019, 020 ZOSTER VACCINES Completed 05/08/2020, 03/09/2020 PNEUMOCOCCAL VACCINES (50+ years) Completed 11/23/2023 RSV VACCINE Completed 05/15/2024 OSTEOPOROSIS SCREENING INITIAL (ONE-TIME) Completed 02/27/2025, 10/27/2021 INFLUENZA VACCINE Completed 05/25/2025, , 05/28/2023, Additional history exists SMOKING STATUS SCREENING (Once After 26 Yrs) Completed 05/25/2025 HEPATITIS A VACCINES Aged Out No long er eligible based on patient's age to complete this topic HIB VACCINES Aged Out No longer eligi ble based on patient's age to complete this topic MENINGOCOCCAL VACCINES (ACWY) Aged Out No longer eligible based on patient's age to complete this topic MENINGOCOCCAL VACCINES (B) Aged Out N o longer eligible based on patient's age to complete this topic Medical Devices Not on file Procedures Procedure Name Priority Date/Time Associated Diagnosis Comments HM DEXA SCAN Routine 02/27/2025 9:44 AM EDT HM MAMMOGRAPHY Routine 02/27/2025 9:42 AM EDT LIPID PANEL Routine 12/29/2024 9:17 AM EDT Benign essential hypertension Pure hypercholesterolemia TSH WITH REFLEX Routine 12/29/2024 9:17 AM EDT Hypothyroidism, unspecified type COMPREHENSIVE METABOLIC PANEL (CMP) Routine 12/29/2024 9:17 AM EDT Pure hypercholesterolemia COLONOSCOPY FOR RESULT ENTRY ONLY Routine 10/27/2022 OUTSIDE GLUCOSE FASTING Routine 10/29/2019 HEPATITIS C ANTIBODY, QUALITATIVE Routine 10/29/2019 from Last 3 Months or Most Recently Relevant to Health Maintenance Results * DEXA SCAN (02/27/2025 9:44 AM EDT) Historical Provider HEALTH MAINTENANCE Final Result * MAMMOGRAPHY FOR RESULT ENTRY ONLY (02/27/2025 9:42 AM EDT) Historical Provider HEALTH MAINTENANCE Edited Result - Final * (ABNORMAL) Comprehensive metabolic panel (12/29/2024 9:17 AM EDT) SODIUM 139 133 - 146 mmol/L [facility] POTASSIUM 4.2 3.3 - 5.1 mmol/L [facility] CHLORIDE 102 96 - 108 mmol/L [facility] CO2 27 21 - 35 mmol/L [facility] BUN 15 6 - 19 mg/dL [facility] CREATININE 0.70 0.5 - 1.5 mg/dL [facility] GLUCOSE 101(H) 70 - 99 mg/dL [facility] ALBUMIN 4.2 3.9 - 4.8 g/dL [facility] TOTAL PROTEIN 7.1 6.5 - 8.0 g/dL [facility] CALCIUM 9.5 8.4 - 10.3 mg/dL [facility] ALKALINE PHOSPHATASE 70 39 - 117 U/L [facility] TOTAL BILIRUBIN 0.5 0.0 - 1.2 mg/dL [facility] AST 20 0 - 37 U/L [facility] ALT 15 0 - 40 U/L [facility] GLOBULIN 2.9 1 - 4.8 g/dL [facility] EGFR 95 >59 mL/min/1.7 3m2 [facility] Comment:Estimated glomerular filtration rate calculated using the CKD-EPI refit equation. ANION GAP 14 10 - 20 mmol/L [facility] Blood 12/29/2024 9:17 AM EDT 12/29/2024 9:20 AM EDT Ronan Flynn MD LAB BLOOD BKR ORDERABLES Jade granda Result [address] [id number] * TSH with reflex (12/29/2024 9:17 AM EDT) TSH 3.48 0.27 - 4.20 uIU/mL [facility] Blood 12/29/2024 9:17 AM EDT 12/29/2024 9:20 AM EDT us Ronan Flynn MD LAB BLOOD BKR ORDERABLES Jade l Result Performing Organization Address [facility] Co de Phone Number [address] [address] * (ABNORMAL) Lipid panel (12/29/2024 9:17 AM EDT) HDL 105 mg/dL [facility] Comment: Interpretation <40 mg/dL: Low HDL cholesterol (major risk factor for CHD) Greater than or equal to 60 mg/dL: High HDL cholesterol ( negative risk factor for CHD) HDL - cholesterol is affected by a number of factors, e.g. smoking, excerise, hormones, sex and age. CHOLESTEROL 262(H) 0 - 240 mg/dL [facility] TRIGLYCERIDES 83 30 - 160 mg/dL [facility] LDL 140(H) 50 - 129 mg/dL [facility] Comment: LDL levels in terms of risk for coronary heart disease: <100 mg/dL: Optimal 100-129 mg/dL: Near or above optimal 130-159 mg/dL: Borderline high 160-189 mg/dL: High >190 mg/dL: Very High CARDIAC RISK RATIO 2.5(L) 3.3 - 4.4 [facility] Blood 12/29/2024 9:17 AM EDT 12/29/2024 9:20 AM EDT us Ronan Flynn MD LAB BLOOD BKR ORDERABLES Jade l Result Performing Organization Address City/[facility]/ZIP Co de Phone Number [address] [address] * COLONOSCOPY FOR RESULT ENTRY ONLY (10/27/2022) Ronan Flynn MD HEALTH MAINTENANCE Edited Res ult - Final * (ABNORMAL) Outside Glucose,Fasting (10/29/2019) Glucose, fasting - External 103(A) 65 - 99 mg/dL Historical Provider LAB BLOOD ORDERABLES Jade l Result * Hepatitis C antibody, qualitative (10/29/2019) Ronan Flynn MD LAB BLOOD BKR ORDERABLES Edit ed Result - Final from Last 3 Months or Most Recently Relevant to Health Maintenance Insurance [facility] MEDICARE PPO BLUE REPLACEMENT [facility] MEDICARE PPO BLUE REPLACEMENT [address] [place] [facility] MEDICARE PPO BLUE REPLACEMENT [address] [place] [facility] MEDICARE PPO BLUE REPLACEMENT [address] [place] [place] [facility] MEDICARE PPO BLUE REPLACEMENT [facility] [place] Care Teams Half Sole Fitter Relationship Specialty Start Date End Date Ronan Flynn MD [address] [place] [address] [email or web address] PCP - General Internal Medicine 08/12/20 Ronan Flynn MD [address] [place] [address] [email or web address] Historical LMR Provider 05/12/17 Steve Trinh MD [address] [place] [address] [address] [place] [address] Internal Medicine 08/11/19 Additional Source Comments The information contained in this document represents components of the legal health record. It is not the complete legal health record.[facility]
== END 2025-06-23 08:45 | disposition home or self-care (01) ==
LOC: HO.MAMMO 08:44
PROVIDERS: PCP Internal Medicine; Visit Provider Internal Medicine
DX: Z12.31 Encounter for screening mammogram for malignant neoplasm of breast (principal)
CPT/HCPCS: 77063; 77067

== ENCOUNTER → 2025-06-23 09:00 | Outpatient (BNV) | payer MEDICARE, SELFPAY | PROVIDERS: PCP Internal Medicine; Visit Provider Internal Medicine | DX: Z12.31 Encounter for screening mammogram for malignant neoplasm of breast (principal) | CPT/HCPCS: 77063; 77067 ==